=== PATIENT | male | born 2000 | race Caucasian/White ===

== ENCOUNTER 2023-06-18 17:02 | Inpatient (IN) ==
[2023-06-18 17:41] LABS: Basophils # (auto) 0.06 K/uL (0.00-0.20); Basophils % (auto) 0.6 %; Eosinophils % (auto) 0.9 %; Hematocrit (blood only) 46.9 % (42.0-52.0); Immature Granulocytes # (auto) 0.04 K/uL (0.01-0.20); Immature Granulocytes % (auto) 0.4 %; Lymphocytes % (auto) 23.9 %; Mean Corpuscular Hemoglobin 29.4 pg (25.0-34.0); Mean Corpuscular Hgb Conc 36.2 g/dL (32.0-36.0); Mean Platelet Volume 10.2 fL (9.4-12.4); Monocytes # (auto) 0.61 K/uL (0.11-0.59); Monocytes % (auto) 5.6 %; Neutrophils # (auto) 7.49 K/uL (1.40-6.50); Neutrophils % (auto) 68.6 %; Platelet Count 249 K/uL (130-400); RDW Coefficient of Variation 13.3 % (11.5-14.5); RDW Standard Deviation 38.5 fL (36.4-46.3); Red Blood Count 5.79 M/uL (4.70-6.10)
[2023-06-18 17:54] LABS: Alanine Aminotransferase 167 U/L (7-52); Albumin Globulin Ratio 1.7 (0.9-2); Albumin Level 5.1 gm/dl (3.4-5.0); Alkaline Phosphatase 78 U/L (34-104); Anion Gap 9 (3-11); Aspartate Aminotransferase 69 U/L (13-39); BUN Creatinine Ratio 19.1 (10-20); Bilirubin,Total 0.6 mg/dl (0.2-1.0); Blood Urea Nitrogen 17 mg/dl (6-23); Calcium 10.2 mg/dl (8.6-10.3); Carbon Dioxide 24 mmol/L (21-32); Chloride 106 mmol/L (98-107); Est GFR (African American) 140.7 ml/min; Est GFR (Non-African American) 121.4 ml/min; Glucose 106 mg/dl (70-99(Fasting)); Potassium 4.1 mmol/L (3.5-5.1); Sodium 139 mmol/L (136-145); Total Protein 8.1 gm/dl (6.0-8.3)
--- NOTE | 2023-06-18 18:35 | Emergency Department Note ---
Impression & Plan Myalgia, Weakness, Transaminitis ED Provider Note NAME: MELISSA JUSTIN AGE: 22 SEX: M : 2000 ARRIVES VIA: Walk-In INFORMANT: Patient, ED PROVIDER(S): Hector Zuluaga MD CHIEF COMPLAINT: Weakness, numbness MEDICAL DECISION MAKING: Patient presents due to concern for weakness. IV was established and blood work was obtained. The patient had a white count of 10 with a normal H&H and platelet count. Kidney functions unremarkable. Lyme's pending AST and ALT 69 167. Patient was ordered empiric IV doxycycline and azithromycin. Tickborne panel was added in addition to the Lyme which was noted to be equivocal. Patient CPK was 225 which is tracely elevated. Patient does have weakness of the lower extremities. Patient does not have any evidence of respiratory failure or compromise. Patient did complain of some numbness but the patient does have sensation in all 4 extremities. Equal and symmetric strength of the upper extremities. Patient does not have any bowel or bladder incontinence or retention. I did discuss w/ patient and family that further workup will continue as an inpatient and may involve lumbar puncture and/or MRIs. The family understood. I did speak with the on-call hospitalist service Dr. Child and the patient was admitted to the medicine service. Discussion w/ other healthcare providers: Dr. Child inpatient medicine 0 Prior /Outside records reviewed: Patient was reviewed for myalgia weakness and transaminitis shows seen by Dr. Patel. Patient reportedly had been complaining of some muscle soreness. Patient did have mild transaminitis with ALT 167. No evidence of rhabdo nothing to suggest GBS or cauda equina at that time and no back pain. Patient did have a head CT at that time that was negative. Differential diagnosis: Infection, dehydration, metabolic abnormality, hypo/hyperglycemia, electrolyte imbalance, anemia, UTI, pneumonia, thyroid dysfunction among others were considered. Diagnostics, as interpreted by me: ECG: None Cardiac monitoring: An order was placed for continuous cardiac monitoring. The monitor shows a rate of 95 with sinus rhythm. Patient was placed on pulse oximetry Medical decision rules: None Imaging studies: None HPI: Patient presents as a referral from [facility] due to concern for progressive myalgias paresthesias and lower extremity weakness. The patient had been seen at [facility] on 312 after symptom onset toward the end of April. Patient was noted to have elevated atypical lymphocytes and elevated AST and ALT unremarkable TSH ESR and CPK mild elevation in CRP with negative Lyme and LEIGHANN testing. Patient did present to the emergency department here on the did have a headache prior and did have some myalgias involving the legs and arms but no weakness or numbness at that time. The patient has noticed progressively worsening to where he describes this as numbness can still feel but feels "numb." Patient has had weakness in his lower extremities. Patient denies any recent vaccinations or upper respiratory symptoms. Patient is unsure as to whether or not he had any known tick bites but did go fishing sometime in April. Patient did have EBV serology testing that was positive positive CMV and was empirically started on doxycycline on June 11 which she has been taking twice daily. Patient had negative Lyme ehrlichiosis Anaplasma but did have equivocal babesiosis testing. Patient denies any bowel bladder incontinence or retention denies any back pain. No trauma. Patient denies any current head or neck pain but does have diffuse bodyaches and myalgias. PAST MEDICAL HISTORY: See Below PAST SURGICAL HISTORY: See Below SOCIAL HISTORY: See Below HOME MEDICATIONS: See Below ALLERGIES: See Below VITALS: See Below PHYSICAL EXAMINATION: GENERAL: NAD, non-toxic. Wearing glasses EYE EXAM: Normal conjunctiva. PERRL, no anisocoria and EOM's grossly intact w/o pain. OROPHARYNX: Moist mucus membranes, grossly normal dentition. NECK: Trachea midline, no stridor. Supple, no nuchal rigidity, no adenopathy, non-tender. No signs of meningismus. FROM of the neck with good chin to chest and neck extension. LUNGS: Clear to auscultation. Normal chest wall mechanics. HEART: NSR, no MRG. ABDOMEN: Abdomen soft, non-tender, no masses, no rebound or guarding. BACK: No CVA TTP. SKIN: No rashes and no bruising. UPPER EXTREMITIES: Upper extremities are grossly normal. LOWER EXTREMITIES: Grossly normal, no edema. NEURO EXAM: A&O x3, cranial nerves II-XII grossly intact, normal speech, moves all 4 extremities but 5 out of 5 strength in the bilateral upper 2 out of 5 in the bilateral lower, decree sensation throughout but still sensate. No clonus. Past Med/Surg History Medical History (Updated 06/18/23 @ 23:32 by Hector Zuluaga MD) TMJ (temporomandibular joint syndrome) Surgical History History of hernia surgery 2009 Family History Mother Hypertension Environmental allergies Grandmother (Maternal) Hypertension Breast cancer Brother History of adverse reaction to anesthesia Father History of adverse reaction to anesthesia Other No family history of bleeding disorder Social History Smoking Status: Never smoker Do You Dip or Chew Tobacco: No; Hx Alcohol Use: Yes Alcohol type: beer Alcohol Intake Frequency: 2-4 x/Month Hx Substance Use: No Preferred Language: Nigerian Communication Ability: Effective Oral Surgery Technician Required: No Beliefs That Will Affect Care: None marital status: Single Current Living Situation: Other Current Living Situation Comment: Student, lives with a roommate current occupational status: student Other Information That Helps Us Care for You: No Feels Safe at Home: Yes Safety Concerns: Feels Safe At This Time Assistive Devices: Glasses Allergies Allergies Allergy/AdvReac Type Severity Reaction Status Date / Time seasonal Allergy Unknown Unknown Uncoded 06/18/23 18:42 Home Meds Home Medications Medication Instructions Recorded Confirmed ascorbic acid (vitamin C) 500 mg 500 mg PO DAILY 06/18/23 06/18/23 tablet (Vitamin C) cholecalciferol (vitamin D3) 50 50 mcg PO DAILY 06/18/23 06/18/23 mcg (2,000 unit) tablet (Vitamin D3) doxycycline hyclate 100 mg tablet 100 mg PO BID 06/18/23 06/18/23 levocetirizine 5 mg tablet (Xyzal) 5 mg PO DAILY PRN allergies 06/18/23 06/18/23 zinc 50 mg capsule 50 mg PO DAILY 06/18/23 06/18/23 Results & Data (ED) Vital Signs Vital Signs - 24 hr 06/18/23 17:10 06/18/23 18:53 06/18/23 20:26 Temperature 36.4 C L Temperature Source Temporal Artery Scan Pulse Rate 114 H Pulse Rate [Finger] 113 H 89 Respiratory Rate 20 18 Respiratory Effort / Characteristics Non-Labored Spontaneous Respiratory Depth Normal Respiratory Pattern Regular Blood Pressure 146/82 H Blood Pressure [Left Arm] 126/90 108/80 Blood Pressure Mean 103 Blood Pressure Mean [Left Arm] 102 89 Blood Pressure Position [Left Arm] Semi-fowlers Pulse Oximetry 100 100 100 Oxygen Delivery Method Room Air Room Air Room Air Sepsis Recent Fever Within 48 Hours No Sepsis New/Unexplained Change in Mental Status N/A Sepsis Action Taken by Nursing No Action Required Home Medications Current Medication List: was personally reviewed by me Laboratory Data Attestation: I reviewed the patient's lab results. 06/18/23 17:25 06/18/23 17:25 Lab Results 06/18/23 06/18/23 06/18/23 Range/Units 17:14 17:25 19:25 WBC 10.90 H (4.8-10.8) K/ul RBC 5.79 (4.70-6.10) M/uL Hgb 17.0 (14.0-18.0) g/dl Hct 46.9 (42.0-52.0) % MCV 81.0 (80.0-100.0) fL MCH 29.4 (25.0-34.0) pg MCHC 36.2 H (32.0-36.0) g/dL RDW Std Deviation 38.5 (36.4-46.3) fL RDW Coeff of Yennifer 13.3 (11.5-14.5) % Plt Count 249 (130-400) K/uL MPV 10.2 (9.4-12.4) fL Immature Gran % (Auto) 0.4 % Neut % (Auto) 68.6 % Lymph % (Auto) 23.9 % Rooks % (Auto) 5.6 % Eos % (Auto) 0.9 % Baso % (Auto) 0.6 % Neut # (Auto) 7.49 H (1.40-6.50) K/uL Lymph # (Auto) 2.60 (1.20-3.40) K/uL Rooks # (Auto) 0.61 H (0.11-0.59) K/uL Eos # (Auto) 0.10 (0.00-0.50) K/uL Baso # (Auto) 0.06 (0.00-0.20) K/uL Immature Gran # (Auto) 0.04 (0.01-0.20) K/uL Sodium 139 (136-145) mmol/L Potassium 4.1 (3.5-5.1) mmol/L Chloride 106 (98-107) mmol/L Carbon Dioxide 24 (21-32) mmol/L Anion Gap 9 (3-11) BUN 17 (6-23) mg/dl Creatinine 0.89 (0.6-1.4) mg/dl Est Cr Clr Drug Dosing Not Reportable Est GFR ( Amer) 140.7 ml/min Est GFR (Non-Af Amer) 121.4 ml/min BUN/Creatinine Ratio 19.1 (10-20) Glucose 106 H (70-99(Fasting)) mg/dl Calcium 10.2 (8.6-10.3) mg/dl Total Bilirubin 0.6 (0.2-1.0) mg/dl AST 69 H (13-39) U/L ALT 167 H (7-52) U/L Alkaline Phosphatase 78 (34-104) U/L Total Creatine Kinase 225 H (30-223) U/L Total Protein 8.1 (6.0-8.3) gm/dl Albumin 5.1 H (3.4-5.0) gm/dl Globulin 3.0 (2.5-4.0) gm/dl Albumin/Globulin Ratio 1.7 (0.9-2) Procalcitonin 0.04 (0-0.5) ng/ml Adenovirus (PCR) Not Detected (NotDetected) Anaplasma Smear Babesia Smear B. pertussis DNA (PCR) Not Detected (NotDetected) B.parapertussis DNA PCR Not Detected (NotDetected) Lyme Disease Screen Equivocal H (Negative) Lyme Disease IgG Ab Negative (Negative) Lyme Disease IgM Ab Positive H (Negative) C. pneumoniae DNA (PCR) Not Detected (NotDetected) Coronavirus OC43 (PCR) Not Detected (NotDetected) Coronavirus HKU1 (PCR) Not Detected (NotDetected) Coronavirus 229E (PCR) Not Detected (NotDetected) SARS-CoV-2 (PCR) Not Detected (NotDetected) Coronavirus NL63 (PCR) Not Detected (NotDetected) Monoscreen Positive A (Negative) Human Metapneumovir PCR Not Detected (NotDetected) Influenza Type A (PCR) Not Detected (NotDetected) Influenza Type B (PCR) Not Detected (NotDetected) M. pneumoniae (PCR) Not Detected (NotDetected) Parainfluenza 1 (PCR) Not Detected (NotDetected) Parainfluenza 2 (PCR) Not Detected (NotDetected) Parainfluenza 3 (PCR) Not Detected (NotDetected) Parainfluenza 4 (PCR) Not Detected (NotDetected) RSV (PCR) Not Detected (NotDetected) Entero/Rhino (PCR) Not Detected (NotDetected) 06/18/23 Range/Units 20:33 WBC (4.8-10.8) K/ul RBC (4.70-6.10) M/uL Hgb (14.0-18.0) g/dl Hct (42.0-52.0) % MCV (80.0-100.0) fL MCH (25.0-34.0) pg MCHC (32.0-36.0) g/dL RDW Std Deviation (36.4-46.3) fL RDW Coeff of Yennifer (11.5-14.5) % Plt Count (130-400) K/uL MPV (9.4-12.4) fL Immature Gran % (Auto) % Neut % (Auto) % Lymph % (Auto) % Rooks % (Auto) % Eos % (Auto) % Baso % (Auto) % Neut # (Auto) (1.40-6.50) K/uL Lymph # (Auto) (1.20-3.40) K/uL Rooks # (Auto) (0.11-0.59) K/uL Eos # (Auto) (0.00-0.50) K/uL Baso # (Auto) (0.00-0.20) K/uL Immature Gran # (Auto) (0.01-0.20) K/uL Sodium (136-145) mmol/L Potassium (3.5-5.1) mmol/L Chloride (98-107) mmol/L Carbon Dioxide (21-32) mmol/L Anion Gap (3-11) BUN (6-23) mg/dl Creatinine (0.6-1.4) mg/dl Est Cr Clr Drug Dosing Est GFR ( Amer) ml/min Est GFR (Non-Af Amer) ml/min BUN/Creatinine Ratio (10-20) Glucose (70-99(Fasting)) mg/dl Calcium (8.6-10.3) mg/dl Total Bilirubin (0.2-1.0) mg/dl AST (13-39) U/L ALT (7-52) U/L Alkaline Phosphatase (34-104) U/L Total Creatine Kinase (30-223) U/L Total Protein (6.0-8.3) gm/dl Albumin (3.4-5.0) gm/dl Globulin (2.5-4.0) gm/dl Albumin/Globulin Ratio (0.9-2) Procalcitonin (0-0.5) ng/ml Adenovirus (PCR) (NotDetected) Anaplasma Smear See Comment Babesia Smear See Comment B. pertussis DNA (PCR) (NotDetected) B.parapertussis DNA PCR (NotDetected) Lyme Disease Screen (Negative) Lyme Disease IgG Ab (Negative) Lyme Disease IgM Ab (Negative) C. pneumoniae DNA (PCR) (NotDetected) Coronavirus OC43 (PCR) (NotDetected) Coronavirus HKU1 (PCR) (NotDetected) Coronavirus 229E (PCR) (NotDetected) SARS-CoV-2 (PCR) (NotDetected) Coronavirus NL63 (PCR) (NotDetected) Monoscreen (Negative) Human Metapneumovir PCR (NotDetected) Influenza Type A (PCR) (NotDetected) Influenza Type B (PCR) (NotDetected) M. pneumoniae (PCR) (NotDetected) Parainfluenza 1 (PCR) (NotDetected) Parainfluenza 2 (PCR) (NotDetected) Parainfluenza 3 (PCR) (NotDetected) Parainfluenza 4 (PCR) (NotDetected) RSV (PCR) (NotDetected) Entero/Rhino (PCR) (NotDetected) Administered Medications Discontinued Medications Azithromycin 500 mg/ Dextrose 255 mls @ 127.5 mls/hr IV NOW STA Stop: 06/18/23 21:11 Last Admin: 06/18/23 20:36 Dose: 127.5 mls/hr Documented By: RACHNA Doxycycline Hyclate 100 mg/ (Dextrose) 100 mls @ 50 mls/hr IV NOW STA Stop: 06/18/23 21:11 Last Admin: 06/18/23 19:22 Dose: Not Given Documented By: RACHNA Sodium Chloride (Nss) 1,000 mls @ 999 mls/hr IV .Q1H1M ONE Stop: 06/18/23 20:13 Last Infusion: 06/18/23 21:24 Dose: Infused Documented By: Admin: 06/18/23 20:23 Dose: 999 mls/hr Documented By: RACHNA Discharge Plan Visit Data Chief Complaint: Leg Weakness, Bilateral Stated Complaint: WEAKNESS OF LIMBS, UNABLE TO WALK ED Provider: Hector Zuluaga Discharge Problem: Myalgia, Weakness, Transaminitis Patient Disposition: Admitted As Inpatient Discharge Instructions Interventions: ED Discharge Assessment Last Done: 06/18/23 21:44
[2023-06-18 18:42] LABS: Lyme Screen Rflx Confirmation Equivocal (Negative)
[2023-06-18 19:07] LABS: Creatine Kinase 225 U/L (30-223)
[2023-06-18] MEDS: DOXYCYCLINE HYCLATE 100 MG in DEXTROSE 5% MINI-B 100 ML IV STA (19:22)
[2023-06-18] MEDS: SODIUM CHLORIDE 0.9% 1,000 ML IV ONE (20:23)
[2023-06-18] MEDS: AZITHROMYCIN 500 MG in DEXTROSE 5% 250 ML IV STA (20:36)
[2023-06-18 20:42] LABS: Adenovirus PCR Not Detected (NotDetected); Bordetella parapertussis PCR Not Detected (NotDetected); Bordetella pertussis PCR Not Detected (NotDetected); Chlamydia pneumoniae PCR Not Detected (NotDetected); Coronavirus 229E PCR Not Detected (NotDetected); Coronavirus CoV-2 (COVID19)PCR Not Detected (NotDetected); Coronavirus HKU1 PCR Not Detected (NotDetected); Coronavirus NL63 PCR Not Detected (NotDetected); Coronavirus OC43PCR Not Detected (NotDetected); Human Metapneumovirus PCR Not Detected (NotDetected); Influenza A PCR Not Detected (NotDetected); Influenza B PCR Not Detected (NotDetected); Mycoplasma pneumoniae PCR Not Detected (NotDetected); Parainfluenza Virus 1 PCR Not Detected (NotDetected); Parainfluenza Virus 2 PCR Not Detected (NotDetected); Parainfluenza Virus 3 PCR Not Detected (NotDetected); Parainfluenza Virus 4 PCR Not Detected (NotDetected); Respiratory Syncytial VirusPCR Not Detected (NotDetected); Rhinovirus/Enterovirus PCR Not Detected (NotDetected)
--- NOTE | 2023-06-18 22:24 | History & Physical Report ---
Date of Service June 18, 2023 Assessment & Plan (1) Transaminitis: (2) Weakness: (3) Myalgia: (4) TMJ (temporomandibular joint syndrome): Plan 22 year old male with h/o TMJ syndrome presenting with progressively worsening myalgias, paresthesias, and LE weakness. Primary differentials include Lyme disease vs GBS/AIDP secondary to viral infection, though many other etiologies remain plausible. LE weakness/ Paresthesias/ Myalgias: +CMV IgM and IgG, +EBV VCA IgM/IgG and EBNA IgG +Lyme IgM, reflex Western blot pending Blood cultures pending MRI brain/C-spine/L-spine w/wo contrast ordered Neurology consulted, appreciate recs Will need LP, CSF studies in AM - if evidence of albuminocytologic dissociation, will need IVIG Continue doxycycline for empiric Lyme coverage, start IV Ceftriaxone 2g Q12 hours Start dexamethasone 10mg Q6H Start Acyclovir 850mg Q8H Start Vancomycin - pharmacy to dose Dispo: admit to PCU/tele VTE ppx: low-risk, deferred FEN/GI: regular diet Full Code History of Present Illness Primary Care Provider: [facility] 22 year old male with h/o TMJ syndrome presenting with progressively worsening myalgias, paresthesias, and LE weakness. Sx initially started in late April with headache and paresthesia in hands and feet - then began having myalgias in all four extremities. Patient presented today as he had sudden worsening in LE weakness, such that he could not walk. Prior to this, patient was seen in ED on 06/10, negative CT head, labs largely unremarkable apart from mild transaminitis. Since discharge from ED, patient had follow up outpatient studies through [facility], significant for ongoing mild transaminitis, +CMV IgM and IgG, +EBV VCA IgM/IgG and EBNA IgG (suggestive of recent infection). Lyme, ehrlichiosis, anaplasmosis testing negative, babesiosis testing equivocal. LEIGHANN, ESR negative, CRP slightly elevated. Patient was started on Doxycycline on 06/11, still taking. Patient d enies any sick symptoms in the recent past, no fevers, also denies recent vaccinations. Patient notes he went fishing one time in mid-April, denies known tick bites, denies subsequent rashes. Denies neck pain, denies bowel/bladder incontinence. Denies family history of neurological conditions. ED Course: WBC 10.9, AST 69, ALT 167, total CK 225, Lyme screen equivocal with positive IgM, +Monoscreen Allergies Allergy/AdvReac Type Severity Reaction Status Date / Time grass pollen Allergy Unknown Unknown Verified 06/19/23 01:08 tree and shrub pollen Allergy Unknown Unknown Verified 06/19/23 01:08 weed pollen Allergy Unknown Unknown Verified 06/19/23 01:08 Home Medications Medication Instructions Recorded Confirmed Type ascorbic acid (vitamin C) 500 mg 500 mg PO DAILY 06/18/23 06/18/23 History tablet (Vitamin C) cholecalciferol (vitamin D3) 50 50 mcg PO DAILY 06/18/23 06/18/23 History mcg (2,000 unit) tablet (Vitamin D3) doxycycline hyclate 100 mg tablet 100 mg PO BID 06/18/23 06/18/23 History levocetirizine 5 mg tablet (Xyzal) 5 mg PO DAILY PRN allergies 06/18/23 06/18/23 History zinc 50 mg capsule 50 mg PO DAILY 06/18/23 06/18/23 History Past Med/Surg History Medical History (Updated 06/18/23 @ 23:32 by Hector Zuluaga MD) TMJ (temporomandibular joint syndrome) Surgical History History of hernia surgery 2009 Family History Mother Hypertension Environmental allergies Grandmother (Maternal) Hypertension Breast cancer Brother History of adverse reaction to anesthesia Father History of adverse reaction to anesthesia Other No family history of bleeding disorder Social History Smoking Status: Never smoker Do You Dip or Chew Tobacco: No; Hx Alcohol Use: Yes Alcohol type: beer Alcohol Intake Frequency: 2-4 x/Month Hx Substance Use: No Preferred Language: Uzbek Communication Ability: Effective Tobacco Educator Required: No Beliefs That Will Affect Care: None marital status: Single Current Living Situation: Other Current Living Situation Comment: Student, lives with a roommate current occupational status: student Other Information That Helps Us Care for You: No Feels Safe at Home: Yes Safety Concerns: Feels Safe At This Time Assistive Devices: Glasses Review of Systems Review of Systems: as per HPI Physical Exam Physical Exam: General: Alert and oriented. No acute distress Cardiac: Regular rate and rhythm, no murmurs appreciated Respiratory: Lungs clear to auscultation bilaterally, No increased work of breathing Abdominal: Non-tender, non-distended. Bowel sounds present. Neuro: AOx3, CNII-XII grossly intact apart from minor smile asymmetry with right corner of mouth higher than left, sensation grossly preserved, 5/5 UE strength, 2+/5 strength on hip flexion, plantar and dorsiflexion. 1/4 patellar and achilles reflexes bilaterally. Results & Data Results & Data Vital Signs (Past 12 Hours) Vital Signs Temp Pulse Pulse Resp BP BP Pulse Ox 06/18/23 20:26 89 18 108/80 100 06/18/23 18:53 113 H 126/90 100 06/18/23 17:10 36.4 C L 114 H 20 146/82 H 100 O2 Del Method 06/18/23 20:26 Room Air 06/18/23 18:53 Room Air 06/18/23 17:10 Room Air Supervising Physician Co-Signing Physician Notes Attending addendum: I have physically seen this patient, have supervised the medical residents activities, and agree with the H&P unless as otherwise noted. Assessment and Plan: Bilateral lower extremity weakness/paresthesias/myalgias- CMV IgM and IgG positive from [facility] EBV VCA IgM and IgG positive and EBNA IgG from [facility] Lyme IgM positive and IgG negative, from ED results this evening Anaplasmosis and babesiosis peripheral smear is negative, with antibodies pending Transaminitis, persistent, with AST 69 and ALT 167 BioFire test negative except for positive Monospot Patient has been on doxycycline 100 mg p.o. twice daily since 06/11, with progression of symptoms Initial symptoms were that of myalgias and arthralgias, but over the past 24 hours developed significant lower extremity weakness bilaterally Place on dexamethasone 10 mg IV now and then 6 mg IV every morning Ceftriaxone 2 g IV every 12 hours Change doxycycline to 100 mg IV every 12 hours Vancomycin IV per pharmacokinetic monitoring Acyclovir 850 mg IV every 8 hours IVIG per pharmacokinetic monitoring, daily for 5 days, with Benadryl premedication Guillain-Verdugo like symptoms- MRI brain with and without contrast negative MRI cervical spine with and without contrast negative MRI lumbar spine unable to be performed, as patient fatigued during the process, and will be done in the a.m. IR lumbar puncture to be performed in a.m. IVIG as noted above Neurology consulted Of note, patient's symptoms had essentially completely resolved by about 4:00 AM, having been reassessed periodically during the evening with gradual improvement in symptoms Resident Activity Tracking Resident Involvement: Resident Care Provided Care Provided: Adult [facility] Medicine
[2023-06-18] MEDS ORDERED: POLYETHYLENE (MIRALAX) 17 GM PACK PO PRN (22:53)
[2023-06-18] MEDS ORDERED: CETIRIZINE HCL 10 MG TABLET PO PRN (23:09)
[2023-06-19] MEDS ORDERED: VANCOMYCIN CONSULT ACTIVE PRN (00:06)
[2023-06-19] MEDS: GADOBUTROL 30ML VIAL IV ONE (00:48)
[2023-06-19] MEDS: DOXYCYCLINE HYCLATE 100 MG CAP PO SCH (01:18)
[2023-06-19] MEDS: dexAMETHasone 10 MG in SYRINGE 0 ML IV SCH (01:18)
[2023-06-19] MEDS: cefTRIAXone SODIUM 2,000 MG in DEXTROSE 5 % MINI-B 50 ML IV SCH ×2 (01:19→12:29)
[2023-06-19] MEDS: VANCOMYCIN HCL 1,750 MG in SODIUM CHLORIDE 0.9% 500 ML IV ONE (01:56)
--- NOTE | 2023-06-19 02:32 | Magnetic Resonance Report ---
Exam(s): MRI HEAD W/WO Contrast IV Amt: 8cc gadavist EXAM: MR Head Without and With Intravenous Contrast CLINICAL HISTORY: Reason for exam: weakness/paresthesias. TECHNIQUE: Magnetic resonance images of the head/brain without and with intravenous contrast in multiple planes. CONTRAST: Patient received 8cc gadavist of IV contrast COMPARISON: No relevant comparison made to prior head CT from June 11, 2023. FINDINGS: Brain: Unremarkable. No mass. No hemorrhage. No acute infarct. The flow voids at the base of the brain are intact. Normal enhancement of the brain parenchyma. The dural venous sinuses are patent. Ventricles: Unremarkable. No ventriculomegaly. Bones/joints: Unremarkable. No acute fracture. Sinuses: Unremarkable as visualized. No acute sinusitis. Mastoid air cells: Unremarkable as visualized. No mastoid effusion. Orbits: Unremarkable as visualized. IMPRESSION: Negative MRI of the brain. Electronically signed by: Margaux Earl MD 06/19/23 02:31 AM
--- NOTE | 2023-06-19 02:35 | Magnetic Resonance Report ---
Exam(s): MRI C SPINE EXAM: MR Cervical Spine Without Intravenous Contrast CLINICAL HISTORY: Reason for exam: weakness/paresthesias. TECHNIQUE: Magnetic resonance images of the cervical spine without intravenous contrast in multiple planes. COMPARISON: No relevant prior studies available. FINDINGS: Vertebrae: There are 7 cervical type vertebral bodies with a mild generalized curve to the left and shallow cervical lordosis. There is normal vertebral body height and alignment. The bone marrow signal is normal. No acute fracture. Spinal cord: The cord is normal size, shape and signal characteristics. The craniocervical junction is normal without evidence of Chiari malformation. Soft tissues: The cervical flow voids are intact. DISCS/SPINAL CANAL/NEURAL FORAMINA: C2-C3: Unremarkable. No significant disc disease. No stenosis. C3-C4: Unremarkable. No significant disc disease. No stenosis. C4-C5: Unremarkable. No significant disc disease. No stenosis. C5-C6: Unremarkable. No significant disc disease. No stenosis. C6-C7: Unremarkable. No significant disc disease. No stenosis. C7-T1: Unremarkable. No significant disc disease. No stenosis. IMPRESSION: Negative MRI of the cervical spine. Electronically signed by: Margaux Earl MD 06/19/23 02:34 AM
[2023-06-19] MEDS: diphenhydrAMINE Capsule 25 MG CAP PO SCH (03:31)
[2023-06-19] MEDS: Octagam 10% IVIG 5 gram bottle IV SCH (04:17)
[2023-06-19] MEDS: ACYCLOVIR SOD 850 MG in DEXTROSE 5% 250 ML IV SCH (04:47)
[2023-06-19] MEDS: Octagam 10% IVIG 10 gram bottle IV SCH (05:15)
--- NOTE | 2023-06-19 05:15 | Billing Data ---
Date of Service June 19, 2023 Coding Level of Care Code 00550 INT INP/OBS CARE
[2023-06-19 06:29] LABS: Hematocrit (blood only) 40.5 % (42.0-52.0); Hemoglobin 14.6 g/dl (14.0-18.0); Mean Corpuscular Hemoglobin 29.6 pg (25.0-34.0); Mean Corpuscular Volume 82.2 fL (80.0-100.0); Mean Platelet Volume 10.3 fL (9.4-12.4); Platelet Count 203 K/uL (130-400); RDW Coefficient of Variation 13.3 % (11.5-14.5); RDW Standard Deviation 39.4 fL (36.4-46.3); Red Blood Count 4.93 M/uL (4.70-6.10); White Blood Count 8.56 K/ul (4.8-10.8)
[2023-06-19 06:57] LABS: Albumin Globulin Ratio 1.5 (0.9-2); Albumin Level 4.3 gm/dl (3.4-5.0); Bilirubin,Total 0.6 mg/dl (0.2-1.0); Calcium 9.3 mg/dl (8.6-10.3); Creatinine Clr Calc Pharmacy 135.3 ml/min; Est GFR (African American) 132.9 ml/min; Est GFR (Non-African American) 114.6 ml/min; Globulin 2.9 gm/dl (2.5-4.0); Potassium 3.9 mmol/L (3.5-5.1); Total Protein 7.2 gm/dl (6.0-8.3)
[2023-06-19] MEDS: Octagam 10% IVIG 20 gram bottle IV SCH (07:12)
[2023-06-19] MEDS: DOXYCYCLINE HYCLATE 100 MG in DEXTROSE 5% MINI-B 100 ML IV SCH (08:34)
--- NOTE | 2023-06-19 09:32 | Pharmacy Report ---
Pharmacy PK ABX Note - Date of Service June 19, 2023 - Assessment and Plan Assessment 22 year old M receiving vancomycin/ceftriaxone/acyclovir for treatment of possible UTILITY TECH infection and doxycycline to cover for Lyme's disease. Pertinent microbiologic data includes: blood cultures pending, positive monoscreen, equivocal lyme disease screen with positive Lyme IgM and negative Lyme IgG antibodies. Lumbar puncture pending. Day #1 of antimicrobial therapy. Plan Vancomycin * Loading dose: 1750 mg IV x 1 * Maintenance dose: 1250 mg IV every 8 hours * Regimen is predicted to achieve target AUC/SUZETTE of 400-600 mg/L.hr * Trough level ordered for: 06/20/23 @ 0930 Pharmacy will continue to follow and will adjust dose/frequency as necessary. Thank you. Pharmacy has transitioned to AUC monitoring for vancomycin. AUC/SUZETTE is the preferred PK/PD target and is associated with decreased risk of nephrotoxicity compared to traditional trough targets.
[2023-06-19] MEDS: VANCOMYCIN HCL 1,250 MG in SODIUM CHLORIDE 0.9% 250 ML IV SCH (10:24)
--- NOTE | 2023-06-19 10:40 | Neurology Consultation ---
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 He has an associated mild left facial palsy which appears to affect both the upper and lower aspects of facial strength although upper facial weakness is more subtle. He has absent Achilles tendon reflexes and diminished deep tendon reflexes at the patellar tendons and upper limbs as well. His sensation is generally intact. His strength has improved modestly after starting IVIG overnight. He is currently able to stand up on his own without assistance. He continues to exhibit a mild to moderate degree of lower extremity weakness, however. No foot drop. A lumbar puncture is generally required to formally establish a diagnosis of Guillain-Verdugo syndrome. Would need to indicate albuminocytologic dissociation. LP to be completed today in radiology. Would recommend adding a meningoencephalitis PCR panel. This patient does have acute antibody elevations for both CMV and EBV. CMV in particular has been associated with Guillain-Verdugo syndrome. He also has a positive Lyme IgM, Western blot pending. Acute Lyme disease is also been associated with Guillain-Verdugo syndrome. Would recommend continued treatment with ceftriaxone given the possibility of Lyme disease and associated GBS. Would continue with IVIG, 0.4 g/kg/day for 5 days. Corticosteroids are typically not recommended for treatment of Guillain-Verdugo syndrome. Patient's presentation is not suggestive of HSV encephalitis. Patient will need further medical evaluation for possible acute CMV and EBV infection and associated hematologic and other organ-specific manifestations. He does have transaminitis. There is some risk for venous thrombosis and DIC as well. Could consider specific antiviral treatment for CMV although I am uncertain if this would be needed in an otherwise immunocompetent host. It may be necessary to consult infectious disease in this case given that he has both positive for EBV and CMV, and at this point also appears to have a positive Lyme IgM. Please call with any questions. 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 He had initially presented to the emergency department on June 10 with a complaint of myalgia. He was not weak on examination at that time and had an unremarkable evaluation including labs, CT of the head, CK. Guillain-Verdugo syndrome was considered in the differential at that time although he had intact strength and deep tendon reflexes. He was discharged in stable condition but instructed to return to the emergency department in the event of significant change. He presented again to the emergency department yesterday with progression in his symptoms, inability to go up and down steps, difficulty standing. He recalls having headache and paresthesias of the lower and upper limbs at symptom onset. He does not recall any antecedent upper respiratory or gastrointestinal illness. No antecedent vaccinations. He denies any history of recent tick bite, no known history of mononucleosis or Stanton-Verdugo virus infection. No arthralgia, no bull's-eye rash. He had been started on doxycycline on June 11. He had notable weakness of the lower extremities at the time of this hospitalization as well as reduced lower extremity deep tendon reflexes. He had an equivocal positive Lyme screen with a positive Lyme IgM. He had a positive CMV IgM and IgG antibody on June 14. He also has a positive EBV IgM and IgG antibody, negative HIV antibody, normal vitamin B12. I discussed his case with the admitting physician last night and had considered Guillain-Verdugo syndrome as a probable diagnosis. Additional testing was recommended including MRI of the brain and spinal cord as well as lumbar puncture and consideration of treatment with IVIG in addition to broad-spectrum antimicrobial therapy initially. Both the brain and cervical spine MRI were completed overnight, studies done with and without IV contrast. No abnormalities observed. I independently reviewed these images. The patient is currently being treated with ceftriaxone, acyclovir, vancomycin, and doxycycline. IVIG was started as well. The lumbar puncture has not been completed, however, to be done this morning in radiology. The patient does report considerable improvement in his weakness this morning although he continues to have weakness of the legs and some difficulty standing. He also has a subtle left facial droop, primarily left lower face although there is subtle weakness of left brow furrow and eyelid closure on the left as well. He denies headache, neck stiffness, or spinal pain. No incontinence. No cognitive or memory symptoms. No confusion. Allergies Allergy/AdvReac Type Severity Reaction Status Date / Time grass pollen Allergy Unknown Unknown Verified 06/19/23 01:08 tree and shrub pollen Allergy Unknown Unknown Verified 06/19/23 01:08 weed pollen Allergy Unknown Unknown Verified 06/19/23 01:08 Home Medications Medication Instructions Recorded Confirmed Type ascorbic acid (vitamin C) 500 mg 500 mg PO DAILY 06/18/23 06/18/23 History tablet (Vitamin C) cholecalciferol (vitamin D3) 50 50 mcg PO DAILY 06/18/23 06/18/23 History mcg (2,000 unit) tablet (Vitamin D3) doxycycline hyclate 100 mg tablet 100 mg PO BID 06/18/23 06/18/23 History levocetirizine 5 mg tablet (Xyzal) 5 mg PO DAILY PRN allergies 06/18/23 06/18/23 History zinc 50 mg capsule 50 mg PO DAILY 06/18/23 06/18/23 History Patient History Medical History (Updated 06/19/23 @ 10:24 by Kendell Telles MD) TMJ (temporomandibular joint syndrome) Surgical History History of hernia surgery 2009 Family History Mother Hypertension Environmental allergies Grandmother (Maternal) Hypertension Breast cancer Brother History of adverse reaction to anesthesia Father History of adverse reaction to anesthesia Other No family history of bleeding disorder Social History Smoking Status: Never smoker Do You Dip or Chew Tobacco: No; Hx Alcohol Use: Yes Alcohol type: beer Alcohol Intake Frequency: 2-4 x/Month Hx Substance Use: No Preferred Language: Argentine Communication Ability: Effective Advertising Sales Representative Required: No Beliefs That Will Affect Care: None marital status: Single Current Living Situation: Other Current Living Situation Comment: Student, lives with a roommate current occupational status: student Other Information That Helps Us Care for You: No Feels Safe at Home: Yes Safety Concerns: Feels Safe At This Time Assistive Devices: Glasses Review of Systems Constitutional: no fever and no chills Eyes: no blind spots and no diplopia Ear, Nose, Mouth, Throat: no hearing loss Respiratory: no cough and no dyspnea Cardiovascular: no chest pain and no palpitations Gastrointestinal: no nausea and no vomiting Genitourinary: no dysuria or no urinary incontinence Musculoskeletal: as per Subjective / HPI, + myalgia and + muscle weakness; no back pain, no neck pain, no joint pain and no muscle atrophy Integumentary: no rash and no lesions Neurologic: as per Subjective / HPI, + gait abnormality, + unsteadiness, + localized weakness and + paresthesia; no tremor(s), no abnormal movements, no dizziness, no abnormal speech, no confusion and no memory loss Psychiatric: no depression and no anxiety Hematologic / Lymphatic: no lymphadenopathy Exam (Neuro) Constitutional: well developed and well nourished; no acute distress Eyes: normal visual yao by confrontation, PERRL and EOM intact bilaterally; no nystagmus Neurologic: Oriented to:: Person, Place and Time Memory: Short Term Intact and Remote Intact Attention: Span Intact and Concentration Intact Speech Fluency: negative Dysarthria or Dysfluency Speech Aphasia: negative Aphasia Fund of Knowledge: Current Events, Past History and Vocabulary Cranial Nerves: Normal II, III, IV, , V, VIII, IX, X, XI and XII; Abnorm VII (Left facial droop noted, primarily lower face although there is subtle weakness of brow furrow and eyelid closure on the left) Motor Strength: negative Normal Lower Extremities or Normal Upper Extremities Motor Tone: Normal Lower Extremities and Normal Upper Extremities Muscle Bulk/Involuntary Movements: No Involuntary Movements; negative Muscle Atrophy Sensation: Light Touch Intact, Pain/Temperature Intact, Vibration Intact and Proprioception Intact Coordination: Limited Balance and Heel-Leija Abnormal; negative Dysdiadochokinesia or Finger-Nose Abnormal Deep Tendon Reflexes: Rt Triceps: 1+, Lt Triceps: 1+, Rt Biceps: 1+, Lt Biceps: 1+, Rt Brachioradialis: 1+, Lt Brachioradialis: 1+, Rt Patellar: 0, Lt Patellar: 1+, Rt Ankle: 0 and Lt Ankle: 0 Special Tests: negative Babinski Present Gait: Ataxic Results & Data Vital Signs (Past 12 Hours) Vital Signs Temp Pulse Pulse Resp BP Pulse Ox O2 Del Method 06/19/23 08:00 99 H 06/19/23 07:18 37.0 C 83 19 126/72 98 Room Air 06/19/23 02:45 36.6 C 80 18 126/79 99 Room Air 06/19/23 00:16 101 H 06/18/23 23:10 36.6 C 99 H 18 138/82 99 Room Air 06/18/23 22:35 36.7 C 92 H 18 145/80 H 100 Room Air Laboratory Results WBC 8.56, hemoglobin 14.6, hematocrit 40.5, platelet count 203, sodium 137, potassium 3.9, BUN 16, creatinine 0.94, glucose 179, calcium 9.3, AST 54, ALT 133, total CK2 25, Lyme screen equivocal, positive Lyme IgM antibody, positive monoscreen. Recent outpatient labs from June 14 reviewed. CMV IgM and IgG antibody titers elevated, IgG 3.7, IgM 207.00. EBV antibodies elevated as well, EBV IgM greater than 160, IgG 236, EBV nuclear antigen IgG greater than 600. HIV antibodies negative. Vitamin B12 567, folate 11.0, there is a mild elevation in babesia microti Ab antibody IgM, 1: 120. Diagnostic Findings Brain and cervical spine MRI with and without contrast are both unremarkable, no parenchymal abnormality, no evidence of subacute or acute stroke, no abnormal postcontrast enhancement, no myelopathy. I independently reviewed these images. Coding Level of Care Code 93045 INT INP/OBS CARE 3/75MIN Diagnoses GBS (Guillain Horatio syndrome) G61.0 Time Spent (min) 90 Comment Total time includes patient contact, chart review, counseling, note preparation
--- NOTE | 2023-06-19 11:13 | Hospitalist Progress Note ---
Date of Service June 19, 2023 Assessment & Plan (1) Transaminitis: (2) Weakness: (3) Myalgia: (4) TMJ (temporomandibular joint syndrome): Júnior Zhao is a 22yo male w/ pmh of TMJ syndrome presenting with worsening sx of myalgias and weakness, predominantly in bilateral lower extremities. DDX includes 1. GBS, 2. Lyme disease, and 3. myasthenia gravis. Based on the patient's presentation of gradual progressive lower extremity weakness in the context of +lyme, +CMV, and +EBV studies, my impression is that this is most likely Guillain-Verdugo syndrome. However, other possible diagnoses cannot be ruled out yet. LE weakness/ Paresthesias/ Myalgias: - +CMV IgM and IgG, +EBV VCA IgM/IgG and EBNA IgG - +Lyme IgM, reflex Western blot pending - Blood cultures pending - MRI brain/C-spine w/wo contrast unremarkable. L-spine MRI and LP pending. - Continue doxycycline for empiric Lyme coverage. Continue vancomycin and ceftriaxone for possible neuro lyme. Pending Lyme Western Blot. - Since the patient is immunocompetent, consider stopping acyclovir and dexamethasone since neither medication is strongly indicated or known to have significant benefit in the treatment of GBS. Will ultimately consult Infectious Disease before making any changes. Input from Neurology and infectious disease is greatly appreciated. - For now, continue IVIG for treatment of GBS and monitor pt symptoms for improvement. Pt expected to remain here over the weekend. Dispo: admit to PCU/tele VTE ppx: low-risk, deferred FEN/GI: regular diet Full Code Admission and Anticipated Discharge Date Admission Date: June 18, 2023 Supervising Physician Co-Signing Physician Notes I personally examined the patient and verified renee points of history and exam, discussed case, and agree with decision making and plan documented by medical student Blaine Joseph. Patient evaluated by neurology and diagnosed clinically with Guillain-Verdugo syndrome. Evaluated patient following lumbar puncture today. Patient reports feeling much better since initial admission. Laboratory workup thus far shows with positive CMV IgG M/IgG, EBV VCA IgM/IgG, EBNA IgG from [facility]. Lumbar puncture today with evaluation of CSF, culture pending in addition to fluid evaluation at this time. Anaplasmosis and babesiosis smear negative, antibodies pending. Head CT, brain MRI, and cervical MRI unremarkable; MRI lumbar spine pending. On admission, patient started on IV dexamethasone, ceftriaxone, doxycycline, vancomycin, acyclovir, and IVIG. Cultures pending. Infectious disease consultation placed. Will discontinue dexamethasone. PT referral placed. VSS. Transaminase levels improving. Discussed case with patient and his parents. Pardeep Zhao is a 22yo male w/ pmh of TMJ syndrome presenting with worsening sx of myalgias and weakness, predominantly in bilateral lower extremities. Today pt resting comfortably w/ mom at bedside. He states he is doing better since he is able to stand today, but was not able to do so yesterday. Review of Systems Constitutional: Constitutional Denies fever, chills, sweats, dizziness, sleep disturbances, + general weakness HEENT Denies dysphagia, sinus pain, sore throat, taste disturbances. Denies decreased hearing, ear pain, ear discharge, nasal discharge. Denies recent visual problems, blurring, double vision, dry eyes. + headaches Respiratory Denies SOB, cough, sputum production, wheezing, pleuritic pain, hemoptysis CV Denies chest pain, palpitations, bradycardia, tachycardia, edema, + claudication GI Denies n/v/d, constipation, heartburn, abdominal tenderness, change in bowel habits Denies dysuria, hematuria, frequency, incontinence, retention, or urgency MSK Denies joint pain, + decreased range of motion due to weakness, + muscle weakness and soreness that is worse w/ exertion Integumentary Denies rash, dryness, or skin lesions. Neurologic Denies altered mental statu. + Numbness and tingling in extremities, predminantly bilateral lower extremities Physical Exam Physical Exam: General Alert and oriented x 4, tired appearing, in no acute distress. HEENT Normocephalic, atraumatic, pupil equal round reactive to light, neck supple, trachea midline Respiratory Chest is clear to auscultation bilaterally with no wheezing, rales, or rhonchi Cardiovascular Heart has regular rate and rhythm with no rubs, murmurs, or gallops Abdomen Soft, nontender, nondistended Musculoskeletal 2+ distal pulses palpated in all four extremities. + reduced range of motion and 4/5 strength bilaterally. Psychiatric Appropriate mood and affect. Neurologic * + failed finger to nose and + failed [id number] due to muscle weakness * Pt unable to walk or stand without support * globally diminished 1+ deep tendon reflexes * reduced sensation to temperature in lower extremities. * No dysdiadochokinesia. CN2 - no vision changes CN3, CN4, CN6 - no occulomotor movement disturbances CN5 - no facial sensation disturbances CN7 - + left sided facial weakness CN8 - no hearing or balance changes CN9 - no changes in taste and tongue sensation CN10 - no dysphagia or difficulty talking CN11 - no difficulty shrugging or turning head CN12 - tongue movement intact Results & Data Results & Data Vital Signs (Past 12 Hours) Vital Signs Temp Pulse Pulse Resp BP Pulse Ox O2 Del Method 06/19/23 08:00 99 H 06/19/23 07:18 37.0 C 83 19 126/72 98 Room Air 06/19/23 02:45 36.6 C 80 18 126/79 99 Room Air 06/19/23 00:16 101 H 06/18/23 23:10 36.6 C 99 H 18 138/82 99 Room Air 06/18/23 22:35 36.7 C 92 H 18 145/80 H 100 Room Air Laboratory Results 06/19/23 06/18/23 06/18/23 05:49 20:33 19:25 WBC 8.56 RBC 4.93 Hgb 14.6 Hct 40.5 L MCV 82.2 MCH 29.6 MCHC 36.0 RDW Std Deviation 39.4 RDW Coeff of Yennifer 13.3 Plt Count 203 MPV 10.3 Sodium 137 Potassium 3.9 Chloride 107 Carbon Dioxide 23 Anion Gap 7 BUN 16 Creatinine 0.94 Est Cr Clr Drug Dosing 135.3 Est GFR ( Amer) 132.9 Est GFR (Non-Af Amer) 114.6 BUN/Creatinine Ratio 17.0 Glucose 179 H Calcium 9.3 Total Bilirubin 0.6 AST 54 H ALT 133 H Alkaline Phosphatase 62 Total Creatine Kinase Total Protein 7.2 Albumin 4.3 Globulin 2.9 Albumin/Globulin Ratio 1.5 Adenovirus (PCR) Not Detected Anaplasma Smear See Comment Babesia Smear See Comment B. pertussis DNA (PCR) Not Detected B.parapertussis DNA PCR Not Detected C. pneumoniae DNA (PCR) Not Detected Coronavirus OC43 (PCR) Not Detected Coronavirus HKU1 (PCR) Not Detected Coronavirus 229E (PCR) Not Detected SARS-CoV-2 (PCR) Not Detected Coronavirus NL63 (PCR) Not Detected Human Metapneumovir PCR Not Detected Influenza Type A (PCR) Not Detected Influenza Type B (PCR) Not Detected M. pneumoniae (PCR) Not Detected Parainfluenza 1 (PCR) Not Detected Parainfluenza 2 (PCR) Not Detected Parainfluenza 3 (PCR) Not Detected Parainfluenza 4 (PCR) Not Detected RSV (PCR) Not Detected Entero/Rhino (PCR) Not Detected 06/18/23 06/18/23 17:25 17:14 WBC 10.90 H RBC 5.79 Hgb 17.0 Hct 46.9 MCV 81.0 MCH 29.4 MCHC 36.2 H RDW Std Deviation 38.5 RDW Coeff of Yennifer 13.3 Plt Count 249 MPV 10.2 Immature Gran % (Auto) 0.4 Neut % (Auto) 68.6 Lymph % (Auto) 23.9 Mckinley % (Auto) 5.6 Eos % (Auto) 0.9 Baso % (Auto) 0.6 Neut # (Auto) 7.49 H Lymph # (Auto) 2.60 Mckinley # (Auto) 0.61 H Eos # (Auto) 0.10 Baso # (Auto) 0.06 Immature Gran # (Auto) 0.04 Sodium 139 Potassium 4.1 Chloride 106 Carbon Dioxide 24 Anion Gap 9 BUN 17 Creatinine 0.89 Est Cr Clr Drug Dosing Not Reportable Est GFR ( Amer) 140.7 Est GFR (Non-Af Amer) 121.4 BUN/Creatinine Ratio 19.1 Glucose 106 H Calcium 10.2 Total Bilirubin 0.6 AST 69 H ALT 167 H Alkaline Phosphatase 78 Total Creatine Kinase 225 H Total Protein 8.1 Albumin 5.1 H Globulin 3.0 Albumin/Globulin Ratio 1.7 Procalcitonin 0.04 Adenovirus (PCR) Anaplasma Smear Babesia Smear B. pertussis DNA (PCR) B.parapertussis DNA PCR Lyme Disease Screen Equivocal H Lyme Disease IgG Ab Negative Lyme Disease IgM Ab Positive H Monoscreen Positive A Diagnostic Findings Brain MRI 06/18/23 20:48 FINDINGS: Brain: Unremarkable. No mass. No hemorrhage. No acute infarct. The flow voids at the base of the brain are intact. Normal enhancement of the brain parenchyma. The dural venous sinuses are patent. Ventricles: Unremarkable. No ventriculomegaly. Bones/joints: Unremarkable. No acute fracture. Sinuses: Unremarkable as visualized. No acute sinusitis. Mastoid air cells: Unremarkable as visualized. No mastoid effusion. Orbits: Unremarkable as visualized. IMPRESSION: Negative MRI of the brain. Cervical Spine MRI 06/18/23 21:56 FINDINGS: Vertebrae: There are 7 cervical type vertebral bodies with a mild generalized curve to the left and shallow cervical lordosis. There is normal vertebral body height and alignment. The bone marrow signal is normal. No acute fracture. Spinal cord: The cord is normal size, shape and signal characteristics. The craniocervical junction is normal without evidence of Chiari malformation. Soft tissues: The cervical flow voids are intact. DISCS/SPINAL CANAL/NEURAL FORAMINA: C2-C3: Unremarkable. No significant disc disease. No stenosis. C3-C4: Unremarkable. No significant disc disease. No stenosis. C4-C5: Unremarkable. No significant disc disease. No stenosis. C5-C6: Unremarkable. No significant disc disease. No stenosis. C6-C7: Unremarkable. No significant disc disease. No stenosis. C7-T1: Unremarkable. No significant disc disease. No stenosis. IMPRESSION: Negative MRI of the cervical spine. Medications Administered Diphenhydramine HCl (Diphenhydramine Capsule 25 Mg Cap) 25 mg PO PRE-TREAT@0245 [facility] Stop: 06/23/23 02:46 Last Admin: 06/19/23 03:31 Dose: 25 mg Documented By: MARIAN Dexamethasone 10 mg/ Syringe 2.5 mls @ 1 mls/min IV Q6H [facility] Stop: 07/19/23 00:14 Last Admin: 06/19/23 06:19 Dose: 1 mls/min Documented By: Admin: 06/19/23 01:18 Dose: 1 mls/min Documented By: MARIAN Acyclovir Sodium 850 mg/ (Dextrose) 267 mls @ 250 mls/hr IV Q8H [facility]; Protocol Stop: 06/29/23 00:59 Last Infusion: 06/19/23 05:59 Dose: Infused Documented By: Admin: 06/19/23 04:47 Dose: 250 mls/hr Documented By: MARIAN Immune Globulin (Octagam 10%) 200 mls @ 50.88 mls/hr IV Q24H [facility]; Protocol Stop: 06/23/23 09:41 Last Admin: 06/19/23 07:12 Dose: 1 mg/kg/min, 50.9 mls/hr Documented By: JOHN Immune Globulin (Octagam 10%) 100 mls @ 50.88 mls/hr IV Q24H [facility]; Protocol Stop: 06/23/23 06:43 Last Titration: 06/19/23 07:16 Dose: Infused Documented By: Admin: 06/19/23 05:15 Dose: 1 mg/kg/min, 50.9 mls/hr Documented By: MARIAN Immune Globulin (Octagam 10%) 50 mls @ 50.88 mls/hr IV Q24H [facility]; Protocol Stop: 06/23/23 04:29 Last Titration: 06/19/23 05:30 Dose: Infused Documented By: Admin: 06/19/23 04:17 Dose: 1 mg/kg/min, 50.9 mls/hr Documented By: MARIAN Doxycycline Hyclate 100 mg/ (Dextrose) 100 mls @ 50 mls/hr IV Q12H [facility] Stop: 06/29/23 08:59 Last Admin: 06/19/23 08:34 Dose: 50 mls/hr Documented By: JOHN
--- NOTE | 2023-06-19 12:17 | Fluoroscopy Report ---
LUMBAR PUNCTURE UNDER FLUOROSCOPY CLINICAL HISTORY: Muscle weakness; evaluate for GBS PROCEDURE: Procedure and risks were explained. Informed consent was obtained. A final timeout was com pleted. The patient was placed prone on the fluoroscopic examination table. The lower lumbar region w as prepped and draped in sterile fashion. 1% lidocaine was utilized for skin anesthesia. Utilizing fluoroscopic guidance, a 22-gauge spinal needle was advanced into the intrathecal space at the L3-4 disc space level. 2 spot images were obtained. Approximately 8 mL of clear CSF fluid was rem esthela and sent to lab for analysis. The needle was removed and Band-Aid applied. The patient tolerated the procedure well. Vital signs will be monitored postprocedure. Total fluoroscopy time 11 seconds. Study dose is 6.80 mGy. IMPRESSION: Lumbar puncture as detailed above. Performed, dictated, and signed by Lisandro Raymond PA-C; to be co-signed by Dr. Philippe Hernandez. Electronically signed by: Philippe Hernandez M.D. 06/19/2023 12:25 PM
[2023-06-19 12:30] LABS: Appearance CSF Clear; CSF Count Tube # 3; CSF Xanthrochromic No xanthochromia; Color CSF Colorless; Red Blood Cell CSF Manual 0 (0-); White Blood Cell CSF Manual 3 (0-5)
[2023-06-19 12:34] LABS: Total Protein CSF 144.6 mg/dl (15-45)
[2023-06-19 13:45] LABS: Cryptococcus neoformans/ga PCR Not Detected (NotDetected); Cytomegalovirus PCR Not Detected (NotDetected); Enterovirus PCR Not Detected (NotDetected); Escherichia coli K1 PCR Not Detected (NotDetected); Haemophilius influenzae PCR Not Detected (NotDetected); Herpes Simplex Virus 1 PCR Not Detected (NotDetected); Herpes Simplex Virus 2 PCR Not Detected (NotDetected); Human Herpes Virus 6 PCR Not Detected (NotDetected); Human Parechovirus PCR Not Detected (NotDetected); Listeria monocytogenes PCR Not Detected (NotDetected); Neisseria meningitidis PCR Not Detected (NotDetected); Streptococcus agalactiae PCR Not Detected (NotDetected); Streptococcus pneumoniae PCR Not Detected (NotDetected); Varicella Zoster Virus PCR Not Detected (NotDetected)
[2023-06-19] MEDS ORDERED: ONDANSETRON INJ 2 MG/ML 2 ML VIAL IV PRN (14:09)
[2023-06-19] MEDS: MoRPHine SULFATE 2 MG/ML CARP IV STA (14:13)
[2023-06-19] MEDS: ACETAMINOPHEN 1,000 MG/100 ML VIAL IV STA (14:23)
--- NOTE | 2023-06-19 17:57 | Infectious Disease Consult ---
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 Symptoms initially started in late April with headache and paresthesias of hands and feet. Then he began having myalgias in all four extremities. He was seen in the ED on 06/10 at which time he had a negative CT head with mild transaminitis. He had outpatient follow up through [facility] where he had ongoing mild transaminitis, +CMV IgM and IgG, +EBV VCA IgM/IgG and EBNA IgG (suggestive of recent infection). Lyme, ehrlichiosis, anaplasmosis testing negative, babesiosis testing equivocal. LEIGHANN, ESR negative, CRP slightly elevated. He was started on doxycycline on 06/11 which he has continued taking. He subsequently presented to the ED on 06/17 when he had sudden worsening of LE weakness where he could not walk. He has not had any fevers, no recent vaccinations, no tick bites or rashes. He went on a fishing trip in mid- April. No neck pain, bowel/bladder incontinence. Here he has been afebrile, vss. WBC 10.9>8.5. Cr wnl. AST 69, ALT 167, Alk phos and bili wnl. CK 225. S/p LP 06/18 with 3 WBC, elevated protein to 144.6, glucose elevated to 88. MRI brain negative. MRI c-spine negative. He was seen by neurology with c/f GBS and started on IVIG with noted improvement in examination. ID consulted on 06/18 for assistance. Telepresenter not available at this time, consult based on chart review. Guillain [place] syndrome most certainly could result from infections. This includes CMV and EBV. Lyme is a rare cause of GBS. CMV and EBV in an immunocompetent individual does not require treatment. Note LFT abnormalities can be seen if there is active CMV infection. For Lyme, neurologic findings would include meningitis, radiculoneuritis, facial nerve palsy, encephalomyelitis, peripheral neuropathy. His presentation doesnt seem consistent with Lyme encephalitis or meningitis. CSF studies for Lyme disease would include show pleocytosis with primarily lymphocytes or monocytes. However, patient only has 3 WBCs. I do note that he had negative Lyme testing recently which is now positive. ?whether he has a new infection, though, per chart review, it doesnt seem like he reported tick bites or rashes. It is possible he was exposed during his fishing trip. Chart review notes left sided facial weakness. Doxycycline should be adequate for nerve palsies, however will keep him on CTX in this case until a more thorough history/exam can be obtained and results are available from Western Blot. Since CSF WBC is negative, along with negative HSV on ME panel, I will stop vancomycin and acyclovir. He had equivocal results for Babesia. Testing here is in process, smear negative. Will f/u results, though his clinical presentation doesnt seem consistent with Babesia as well. Note doxycycline does not cover Babesia. 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 If questions or concerns, contact Infectious Disease Call Center . Viky Ulloa MD [facility], Division of Infectious Diseases [facility]: [phone] Consultation Information This patient recommendation is based on a telemedicine consult request which was completed asynchronously through chart review and information provided by the primary physician. The patient was not seen or examined today. The evaluation is consultative in nature and all patient care and treatment decisions can either be accepted or rejected by the patient's primary hospital-based treating physician using their own independent medical judgment for their patient. Clamper contact information: Please call [facility] Call Center [phone]. (Phone Number For Physician Use Only) Time Spent Reviewing Chart: 31+ minutes History of Present Illness Reason for Consultation: Guillan [place], CMV, EBV, Lyme infection Attending Physician: Eduarda Godwin DO History of Present Illness 22yo M with h/o TMJ syndrome who presented on 06/17 with worsening myalgias, paresthesias, and LE weakness. Symptoms initially started in late April with headache and paresthesias of hands and feet. Then he began having myalgias in all four extremities. He was seen in the ED on 06/10 at which time he had a negative CT head with mild transaminitis. He had outpatient follow up through [facility] where he had ongoing mild transaminitis, +CMV IgM and IgG, +EBV VCA IgM/IgG and EBNA IgG (suggestive of recent infection). Lyme, ehrlichiosis, anaplasmosis testing negative, babesiosis testing equivocal. LEIGHANN, ESR negative, CRP slightly elevated. He was started on doxycycline on 06/11 which he has continued taking. He subsequently presented to the ED on 06/17 when he had sudden worsening of LE weakness where he could not walk. He has not had any fevers, no recent vaccinations, no tick bites or rashes. He went on a fishing trip in mid- April. No neck pain, bowel/bladder incontinence. Here he has been afebrile, vss. WBC 10.9>8.5. Cr wnl. AST 69, ALT 167, Alk phos and bili wnl. CK 225. S/p LP 06/18 with 3 WBC, elevated protein to 144.6, glucose elevated to 88. MRI brain negative. MRI c-spine negative. He was seen by neurology with c/f GBS and started on IVIG with noted improvement in examination. ID consulted on 06/18 for assistance. Allergies Allergy/AdvReac Type Severity Reaction Status Date / Time grass pollen Allergy Unknown Unknown Verified 06/19/23 01:08 tree and shrub pollen Allergy Unknown Unknown Verified 06/19/23 01:08 weed pollen Allergy Unknown Unknown Verified 06/19/23 01:08 Home Medications Medication Instructions Recorded Confirmed Type ascorbic acid (vitamin C) 500 mg 500 mg PO DAILY 06/18/23 06/18/23 History tablet (Vitamin C) cholecalciferol (vitamin D3) 50 50 mcg PO DAILY 06/18/23 06/18/23 History mcg (2,000 unit) tablet (Vitamin D3) doxycycline hyclate 100 mg tablet 100 mg PO BID 06/18/23 06/18/23 History levocetirizine 5 mg tablet (Xyzal) 5 mg PO DAILY PRN allergies 06/18/23 06/18/23 History zinc 50 mg capsule 50 mg PO DAILY 06/18/23 06/18/23 History Patient History Medical History (Updated 06/19/23 @ 18:04 by Viky Ulloa MD) TMJ (temporomandibular joint syndrome) Surgical History History of hernia surgery 2009 Family History Mother Hypertension Environmental allergies Grandmother (Maternal) Hypertension Breast cancer Brother History of adverse reaction to anesthesia Father History of adverse reaction to anesthesia Other No family history of bleeding disorder Social History Smoking Status: Never smoker Do You Dip or Chew Tobacco: No; Hx Alcohol Use: Yes Alcohol type: beer Alcohol Intake Frequency: 2-4 x/Month Hx Substance Use: No Preferred Language: Croatian Communication Ability: Effective Internal Controls Specialist Required: No Beliefs That Will Affect Care: None marital status: Single Current Living Situation: Other Current Living Situation Comment: Student, lives with a roommate current occupational status: student Other Information That Helps Us Care for You: No Feels Safe at Home: Yes Safety Concerns: Feels Safe At This Time Assistive Devices: None Results & Data Vital Signs (Past 12 Hours) Vital Signs Temp Pulse Pulse Resp BP Pulse Ox O2 Del Method 06/19/23 16:10 37.1 C 95 H 19 115/65 97 Room Air 06/19/23 15:01 110 H 06/19/23 14:04 102 H 18 116/68 97 Room Air 06/19/23 13:23 111 H 18 116/65 98 Room Air 06/19/23 12:53 113 H 16 128/65 98 Room Air 06/19/23 12:38 36.7 C 103 H 18 92/59 L 93 Room Air 06/19/23 10:27 36.5 C 94 H 19 137/73 97 Room Air 06/19/23 08:00 99 H 06/19/23 07:18 37.0 C 83 19 126/72 98 Room Air Laboratory Results Labs reviewed. Diagnostic Findings Imaging reviewed.
[2023-06-19] MEDS: GADOBUTROL 65ML VIAL IV ONE (18:28)
--- NOTE | 2023-06-19 19:11 | Magnetic Resonance Report ---
MRI OF THE LUMBAR SPINE COMBO CLINICAL HISTORY: Lower extremity weakness. Paresthesias. COMPARISON STUDY: No priors. TECHNIQUE: MRI of the lumbar spine is performed utilizing various T1 and T2-weighted sequences in the axial and sagittal planes. Contrast enhanced sequences are acquired following the IV administration of 8 cc of Gadavist. FINDINGS: Lumbar spine: Vertebral body height and alignment are maintained throughout the lumbar spine. Normal marrow signal intensity is preserved throughout the visualized bony structures. Mild lumbar levocurva ture is centered at L3. The transverse and spinous processes appear intact. There is no evidence of s pondylolysis. No destructive bony lesion is seen. Intervertebral discs: Normal height and signal intensity. Spinal cord and central canal: The visualized spinal cord is normal in morphology and signal intensit y. The conus medullaris terminates at the level of L1. The nerve roots of the cauda equina are normal in morphology and show mild abnormal postcontrast enhancement. There is no evidence of epidural flui d collection. L1-L2: Unremarkable. L2-L3: Unremarkable. L3-L4: Unremarkable. L4-L5: Unremarkable. L5-S1: Unremarkable. Sacrum: The visualized sacrum is normal in morphology and signal intensity. Soft tissues: The paraspinous soft tissues are within normal limits. The retroperitoneal structures a re grossly unremarkable but incompletely evaluated. IMPRESSION: 1. There is mild abnormal postcontrast enhancement of the nerve roots of the cauda equina. The appear ance suggests Guillain-Verdugo? syndrome. Correlate with clinical findings and lumbar puncture results. 2. There is no evidence of epidural fluid collection. 3. There is no disc herniation, central canal stenosis, or neural foraminal narrowing seen throughout the lumbar spine. 4. No destructive bony process is seen. Electronically signed by: Maurice Cordon M.D. 06/19/2023 7:09 PM
[2023-06-20 06:51] LABS: Creatinine Clr Calc Pharmacy 146.2 ml/min; Est GFR (Non-African American) 122.5 ml/min
[2023-06-20] MEDS ORDERED: VANCOMYCIN LEVEL ONE (09:00)
[2023-06-20] MEDS: ACETAMINOPHEN 1,000 MG/100 ML VIAL IV PRN (09:33)
[2023-06-20] MEDS: SODIUM CHLORIDE 0.9% 1,000 ML IV SCH (09:34)
[2023-06-20 10:11] LABS: Calcium 9.3 mg/dl (8.6-10.3); Magnesium 2.1 mg/dl (1.7-2.4)
--- NOTE | 2023-06-20 10:12 | Neurology Progress Note ---
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 He has been responding well to IVIG. He continues to have mild proximal weakness for the shoulder and hip girdles as well as a subtle left facial palsy. He has diminished deep tendon reflexes throughout, absent at the Achilles tendons. 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 His lumbar spine MRI reveals enhancement of the nerve roots of the cauda equina, which is also consistent with his diagnosis. He does have positive EBV and CMV IgM and IgG antibodies and also has a positive Lyme IgM antibody screen. All of these infections have been associated with Guillain- Verdugo syndrome. He has no known history of immunocompromise. His case has been reviewed by infectious disease. He does have a mild transaminitis. Other than Guillain-Verdugo related signs and symptoms, he is otherwise well-appearing. Continue with IVIG 0.4 g/kg/day for 5 days per protocol, currently day 2. Continue with ceftriaxone, follow-up with Lyme Western blot. Given that his symptoms have been improving with IVIG, I expect a fairly good prognosis for recovery. Recovery can be prolonged, however, and may take several months. The majority of patients with GBS make a full recovery by 1 year. A minority of patients with GBS may experience a relapse of symptoms after treatment is discontinued although repeat treatment with IVIG is not typically needed in this context. We may consider obtaining outpatient EMG evaluations as well for additional diagnostic support and to provide some prognostic information going forward. He should have consultations with PT/OT. He may follow-up with me in outpatient clinic 2 to 3 weeks from discharge. Admission and Anticipated Discharge Date Admission Date: June 18, 2023 Subjective Follow-up regarding Guillain-Verdugo syndrome The patient is a 22-year-old male who was admitted to the [facility] June 18, 2023 with a 4-week history of progressive weakness and ambulatory dysfunction. 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 Please see my initial consultation completed yesterday for further de tails. He has continued with IVIG as recommended and reports improvement in his symptoms. He continues to have a mild to moderate degree of weakness, notably hip and shoulder girdle. He also continues to exhibit a mild left facial palsy although able to close the eye and has reasonably good brow furrow on the left. He denies headache, neck or low back pain. He reports mild chronic right hip p ain. No other arthralgia. No rash. He denies experiencing any difficulty with speech, swallowing. No difficulty with breathing. No difficulty with urination, has not moved his bowels yet. Has been eating and drinking well. His lumbar puncture was completed yesterday, results consistent with albuminocytologic dissociation. He had a lumbar spine with and without contrast completed as well yesterday. There was evidence of abnormal postcontrast enhancement of the nerve roots of the cauda equina but often associates with GBS. His case was reviewed by infectious disease yesterday, noting his positive CMV and EBV IgM/IgG antibodies, as well as a positive Lyme IgM antibody. His medication regimen has been adjusted, dexamethasone, acyclovir, vancomycin, and doxycycline have been discontinued. He continues with ceftriaxone and IVIG as above. Review of Systems Constitutional: no fever, no chills and no sweats Eyes: no diplopia Respiratory: no dyspnea Cardiovascular: no chest pain and no edema Neurologic: + gait abnormality, + unsteadiness and + generalized weakness; no loss of sensation, no lack of coordination, no tremor(s), no abnormal movements, no dizziness, no headache(s), no confusion and no memory loss Results & Data Vital Signs (Past 12 Hours) Vital Signs Temp Pulse Pulse Resp BP BP Pulse Ox 06/20/23 07:13 36.4 C L 71 18 135/77 99 06/20/23 02:40 36.6 C 77 17 130/72 96 06/19/23 23:56 98 H 06/19/23 22:49 36.6 C 87 18 147/66 H 98 O2 Del Method 06/20/23 07:13 Room Air 06/20/23 02:40 Room Air 06/19/23 23:56 06/19/23 22:49 Room Air Laboratory Results Creatinine 0.87. CSF analysis reviewed, clear, colorless, no xanthochromia, CSF WBC 3, RBC 0, CSF glucose 88, CSF protein 144.6, meningoencephalitis PCR panel negative. Diagnostic Findings Lumbar spine MRI with and without contrast results as described above, I independently reviewed these images and was able to appreciate the finding of enhancement of the nerve roots in the cauda equina as described. No other abnormalities observed. Exam (Neuro) Constitutional: well developed; no acute distress Eyes: normal visual yao by confrontation, PERRL and EOM intact bilaterally; no nystagmus Neurologic: Oriented to:: Person, Place and Time Memory: Short Term Intact and Remote Intact Attention: Span Intact and Concentration Intact Speech Fluency: negative Dysarthria or Dysfluency Speech Aphasia: negative Aphasia Fund of Knowledge: Current Events, Past History and Vocabulary Cranial Nerves: Normal II, III, IV, , V, VIII, IX, X, XI and XII; Abnorm VII (Mild left facial palsy noted) Motor Strength: Weakness Upper Extremities (Proximal) and Weakness Lower Extremities (Proximal) Motor Tone: Normal Lower Extremities and Normal Upper Extremities Muscle Bulk/Involuntary Movements: No Involuntary Movements; negative Muscle Atrophy Sensation: Light Touch Intact and Proprioception Intact Coordination: Limited Balance; negative Dysdiadochokinesia, Finger-Nose Abnormal or Heel-Leija Abnormal Deep Tendon Reflexes: Rt Triceps: 1+, Lt Triceps: 1+, Rt Biceps: 1+, Lt Biceps: 1+, Rt Brachioradialis: 1+, Lt Brachioradialis: 1+, Rt Patellar: 0, Lt Patellar: 1+, Rt Ankle: 0 and Lt Ankle: 0 Gait: Ataxic Coding Level of Care Code 70124 SUB INP/OBS CARE 3/50MIN Diagnoses GBS (Guillain Archer syndrome) G61.0 Time Spent (min) 50 Comment Total time includes patient contact, chart review, counseling, note preparation
[2023-06-20] MEDS: cefTRIAXone SODIUM 2,000 MG in DEXTROSE 5 % MINI-B 50 ML IV SCH (12:42)
--- NOTE | 2023-06-20 15:53 | Hospitalist Progress Note ---
Date of Service June 20, 2023 Assessment & Plan (1) Transaminitis: (2) Weakness: (3) Myalgia: (4) TMJ (temporomandibular joint syndrome): (5) GBS (Guillain [place] syndrome): Plan 22 year old male with h/o TMJ syndrome presenting with progressively worsening myalgias, paresthesias, and LE weakness admitted for Guillain-Verdugo syndrome #Guillain-Verdugo Syndrome cont IVIg (day 2) cont ceftriaxone pending Lyme western blot Blood cultures negative at 24hrs CSF cx no growth to date MRI brain, c spine negative MRI lumbar spine + for enhancement at the cauda equina Neurology consulted, appreciate recs - continue IVIg, consider EMG studies, d/c dexamethasone ID consulted - dc doxycycline, vancomycin, acyclovir Per pt was tested at [facility] for HIV and was negative, will repeat, consent obtained CSF studies consistent with GBS +CMV IgM and IgG, +EBV VCA IgM/IgG and EBNA IgG +Lyme IgM, reflex Western blot pending PT/OT Dispo: admit to PCU/tele VTE ppx: low-risk, deferred FEN/GI: regular diet Full Code Admission and Anticipated Discharge Date Admission Date: June 18, 2023 Supervising Physician Co-Signing Physician Notes I personally examined the patient and verified renee points of history and exam, discussed case, and agree with decision making and plan documented by Dr. Fletcher. Patient with continued improvement today, he states he is feeling increased strength in his distal muscle groups, still feels some weakness in his proximal muscle groups upper and lower extremities. Patient will continue IVIG protocol to complete 5 days. He remains on ceftriaxone. Will benefit from PT evaluation and treatment. Subjective Patient seen and evaluated at bedside this morning. No acute events overnight. Beginning to recover strength. Still feels weak in pelvic girdle and b/l upper arms. Able to ambulate to the bathroom on his own with minimal assistance. Denies CP, SOB, N/V/D. Review of Systems Review of Systems: reviewed, per HPI Physical Exam Physical Exam: Constitutional: no acute distress HEENT: NCAT CV: regular rhythm, no murmur appreciated, extremities well-perfused, no LE edema Resp: CTABL, no wheezes/rales/rhonchi appreciated, no increased work of breathing GI: soft, nondistended, nontender, BS normoactive MSK: no gross deformities appreciated Skin: warm, dry, no rash appreciated Neuro: alert, oriented, weakness of pelvic and shoulder girdles, improved from prior Results & Data Results & Data Vital Signs (Past 12 Hours) Vital Signs Temp Pulse Resp BP Pulse Ox O2 Del Method 06/20/23 14:34 36.6 C 86 18 121/71 98 Room Air 06/20/23 10:59 36.3 C L 71 18 133/78 99 Room Air 06/20/23 07:13 36.4 C L 71 18 135/77 99 Room Air Resident Activity Tracking Resident Involvement: Resident Care Provided Care Provided: Adult Hospital Medicine
[2023-06-21 06:44] LABS: Est GFR (African American) 146.2 ml/min; Est GFR (Non-African American) 126.2 ml/min
--- NOTE | 2023-06-21 14:31 | Hospitalist Progress Note ---
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 presenting with progressively worsening myalgias, paresthesias, and LE weakness admitted for Guillain-Verdugo syndrome #Guillain-Verdugo Syndrome cont IVIg (day 3) cont ceftriaxone pending Lyme western blot Blood cultures negative at 48hrs CSF cx no growth MRI brain, c spine negative MRI lumbar spine + for enhancement at the cauda equina Neurology consulted, appreciate recs - continue IVIg, consider EMG studies, d/c dexamethasone ID consulted - dc doxycycline, vancomycin, acyclovir Per pt was tested at [facility] for HIV and was negative, will repeat, consent obtained CSF studies consistent with GBS +CMV IgM and IgG, +EBV VCA IgM/IgG and EBNA IgG +Lyme IgM, reflex Western blot pending PT/OT Dispo: admit to PCU/tele VTE ppx: low-risk, deferred FEN/GI: regular diet Full Code Of note, on this date verbal consent was given by pt in presence of his father for use of this record in a de-identified form for scholarly work by Dr. Fletcher, Dr. Martin, and Dr. Godwin Admission and Anticipated Discharge Date Admission Date: June 18, 2023 Supervising Physician Co-Signing Physician Notes I personally examined the patient and verified renee points of history and exam, discussed case, and agree with decision making and plan documented by Dr. Fletcher. Patient continues to improve in overall strength, he was working with physical therapy today, continues to feel some weakness in his proximal muscle groups of upper and lower extremities. Patient will continue IVIG protocol to complete 5 days, today day 3. He remains on ceftriaxone pending CSF Lyme studies. Forms completed for [facility] as patient current undergrad student, for excuse of classes and possible need of accommodations when returning. Patient provided verbal consent today for case presentation of deidentified to be presented by members of the medical team involved in his care. Subjective Patient seen and evaluated at bedside this morning. No acute events overnight. Continues to recover strength. Ambulating with minimal to no assistance. Denies CP, SOB, N/V/D. Review of Systems Review of Systems: reviewed, per HPI Physical Exam Physical Exam: Constitutional: no acute distress HEENT: NCAT CV: regular rhythm, no murmur appreciated, extremities well-perfused, no LE edema Resp: CTABL, no wheezes/rales/rhonchi appreciated, no increased work of breathing GI: soft, nondistended, nontender, BS normoactive MSK: no gross deformities appreciated Skin: warm, dry, no rash appreciated Neuro: alert, oriented, weakness of pelvic and shoulder girdles, improved from prior Results & Data Results & Data Vital Signs (Past 12 Hours) Vital Signs Temp Pulse Resp BP BP Pulse Ox O2 Del Method 06/21/23 10:44 36.7 C 72 18 123/77 100 Room Air 06/21/23 07:20 36.3 C L 68 19 119/77 98 Room Air 06/21/23 05:04 37.0 C 70 17 122/73 98 Room Air Resident Activity Tracking Resident Involvement: Resident Care Provided Care Provided: Adult Hospital Medicine
[2023-06-22 07:30] LABS: Creatinine Clr Calc Pharmacy 151.4 ml/min; Est GFR (Non-African American) 124.3 ml/min
--- NOTE | 2023-06-22 07:46 | Hospitalist Progress Note ---
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 (day 3) cont ceftriaxone pending Lyme western blot Blood cultures negative at 48hrs CSF cx no growth MRI brain, c spine negative MRI lumbar spine + for enhancement at the cauda equina Neurology consulted, appreciate recs - continue IVIg, consider EMG studies, d/c dexamethasone ID consulted - dc doxycycline, vancomycin, acyclovir Per pt was tested at [facility] for HIV and was negative, will repeat, consent obtained CSF studies consistent with GBS +CMV IgM and IgG, +EBV VCA IgM/IgG and EBNA IgG +Lyme IgM, reflex Western blot pending PT/OT Dispo: admit to PCU/tele VTE ppx: low-risk, deferred FEN/GI: regular diet Full Code Of note, on this date verbal consent was given by pt in presence of his father for use of this record in a de-identified form for scholarly work by Dr. Fletcher, Dr. Martin, and Dr. Godwin Admission and Anticipated Discharge Date Admission Date: June 18, 2023 Subjective Patient seen and evaluated at bedside this morning. No acute events overnight. Continues to recover strength. Ambulating with minimal to no assistance. Denies CP, SOB, N/V/D. Review of Systems Constitutional: no fever, no chills and no weakness (b/l weakness in hip flexion/extension and knee flexion/extension) Eyes: no photophobia and no worsening vision Respiratory: no cough, no chest congestion and no dyspnea Cardiovascular: no chest pain and no palpitations Gastrointestinal: no abdominal pain, no nausea, no vomiting, no constipation and no diarrhea/loose stools Genitourinary: + urinary frequency (2/2 iv fluid intake ); no dysuria Neurologic: + tingling (hands and feet), + numbness and + lack of coordination (less balance in legs) Results & Data Results & Data Vital Signs (Past 12 Hours) Vital Signs Temp Pulse Pulse Resp BP Pulse Ox O2 Del Method 06/22/23 02:52 36.5 C 76 16 131/80 99 Room Air 06/21/23 23:56 75 06/21/23 23:25 36.4 C L 66 16 133/82 97 Room Air
--- NOTE | 2023-06-22 08:51 | Neurology Progress Note ---
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 The etiology is not obvious but he has a possible EBV origin or even Lyme disease. The abnormal MRI of the lumbar spine with thickened nerve roots taking up contrast is consistent with either Guillain-Verdugo syndrome or an acute Lyme reaction. On examination he has mild to moderate weakness more proximal and distal without obvious ataxia. He has absent reflexes except for the triceps which are present but diminished. There is no sensory loss. He has no cranial nerve issues currently. There are no meningeal signs or encephalopathy. Overall, his prognosis is quite good and I suspect he will recover completely. This will depend on how much axonopathy he has with this condition, compared to demyelination. An EMG will sort this out. Recommendations: 1. Continue IVIG per protocol. Today is day 4 and tomorrow will be day 5. 2. Continue with physical therapy for strengthening and gait improvement. 3. Awaiting Lyme Western blot and EBV final titers. 4. For now, continue IV Rocephin while in the hospital and likely would recommend converting to p.o. doxycycline for 2 or 3 weeks after discharge. 5. Recommend EMG and nerve conduction studies of both legs and 1 arm in a week or 2 after discharge. 6. Follow-up with Dr. Telles in clinic. Overall, I spent a total of 90 minutes with this case including review of records, review of MRI films, direct evaluation of the patient at bedside, report generation, and discussion of the case with the patient, father, and RN at bedside as well as Dr. House, including differential diagnosis and treatment options. Admission and Anticipated Discharge Date Admission Date: June 18, 2023 Subjective Patient was seen accompanied by his father who was in the room today. Patient states that he started having weakness in his hamstrings somewhere 2-1/2 to 3 weeks ago. The weakness progressed gradually until he could essentially not walk the time he came to the emergency room June 17. The patient had dysesthesias on his tongue arms and legs particularly centered on the hands and feet. There was no sandra numbness or sensory loss he felt. He had no trouble swallowing or breathing. He had no double vision or droopy eyelids. Mentation and speech was good. The patient had no significant lumbar spine pain but he did have pain in his hamstring muscles in the beginning. The patient had left facial weakness which was present on admission. CSF June 18 revealed a protein of 144.6, 3 white cells and 0 red cells. Glucose was mildly elevated at 88. BioFire was unremarkable with no viruses or other organisms detected. Lyme is pending. It was clear and colorless and there is no growth with a negative Gram stain. MRI of the brain was unremarkable with and without contrast. MRI of the cervical spine with and without contrast was unremarkable as well. MRI of the lumbar spine with and without contrast showed thickened enhancing nerve roots without any other abnormalities. I reviewed all 3 of these MRI films. Laboratory studies showed a normal CBC, normal electrolytes and renal function, but elevated AST and ALT. CK was mildly elevated at 225. Lyme antibody testing was equivocal with a positive IgM. Anaplasmosis, babesiosis and other testing was unremarkable. Monospot was positive, and EBV is pending. Patient has received 4 of 5 days of IVIG per protocol for Guillain-Verdugo syndrome. He has markedly improved in his strength since admission and can walk and feels he is stronger up to 50% better than he was on admission. Blood pressure currently is 126/74 and he is afebrile. He is getting ceftriaxone IV still. Results & Data Vital Signs (Past 12 Hours) Vital Signs Temp Pulse Pulse Resp BP Pulse Ox O2 Del Method 06/22/23 07:24 36.4 C L 73 19 126/74 99 Room Air 06/22/23 02:52 36.5 C 76 16 131/80 99 Room Air 06/21/23 23:56 75 06/21/23 23:25 36.4 C L 66 16 133/82 97 Room Air Exam (Neuro) Physical Exam: He is awake and alert. Speech is without aphasia or dysarthria. Mood and affect seem normal and appropriate and thought processes are intact. He is pleasant and cooperative. Extraocular eye muscles are intact without nystagmus. Pupils were 4 mm bilaterally and reactive to light. There is no facial droop or asymmetry. Tongue was midline. Neck strength was normal. There is no ptosis and the remainder of cranial nerve strength including 11 was normal. Stance was reasonable eyes open but he deteriorated with eyes closed Coordination was normal in the arms without tremor or ataxia. Strength is 4/5 in the deltoids, biceps, triceps, hip flexors, quadriceps, and hamstring muscles bilaterally. Strength was close to 4+/5 distally in pipe setter and intrinsic hand muscles. Tibialis anterior, gastrocnemius, and toe extensors were close to 4+/5 also. Reflexes were absent even despite reinforcement maneuvers in all 4 limbs including biceps, brachioradialis, quadriceps, and Achilles tendons bilaterally. Triceps tendon reflexes were 1/4 bilaterally. Toes were downgoing with plantar stimulation bilaterally. 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
--- NOTE | 2023-06-22 11:41 | Infectious Disease Progress Nt ---
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 on 06/17 with worsening myalgias, paresthesias, and LE weakness. Symptoms initially started in late April 2023 with headache and paresthesias of hands and feet. Then he began having myalgias in all four extremities. He was seen in the ED on 06/10 at which time he had a negative CT head with mild transaminitis. He had outpatient follow up through [facility] where he had ongoing mild transaminitis, +CMV IgM and IgG, +EBV VCA IgM/IgG and EBNA IgG (suggestive of recent infection). Lyme, Ehrlichiosis, anaplasmosis testing negative, babesiosis testing equivocal. LEIGHANN, ESR negative, CRP slightly elevated. He was started on doxycycline on 06/11 which he has continued taking. He subsequently presented to the ED on 06/17 when he had sudden worsening of LE weakness where he could not walk. He has not had any fevers, no recent vaccinations, no tick bites or rashes. He went on a fishing trip in mid-April. No neck pain, bowel/bladder i ncontinence. Here he has been afebrile, vss. WBC 10.9>8.5. Cr wnl. AST 69, ALT 167, Alk phos and bili wnl. CK 225. S/p LP 06/18 with 3 WBC, elevated protein to 144.6, glucose elevated to 88. MRI brain negative, MRI C-spine negative, MRI L- spine with mild enhancement of cauda equina c/f GBS. He was seen by neurology with c/f GBS and has been receiving IVIG with significant improvement in weakness. ID consulted on 06/18 for possible Guillain-Knapp and concern for CMV, EBV, and Lyme infections as potential precipitant(s) of GBS. Patient found to have evidence of potentially recent EBV and CMV infection; recent [facility] testing with +CMV IgM and IgG, +EBV VCA IgM/IgG and EBNA IgG (suggestive of recent infection). He previously had negative Lyme testing recently which is now equivocal (+IgM but neg IgG)consider whether this represents a true new Lyme infection given possible exposure during his fishing trip. IgM may sometimes be false positive; WB is pending. Pts clinical presentation is consistent with Guillain-Knapp syndrome. GBS can be precipitated by infection, including CMV and EBV. Lyme is a more rare cause of GBS. CMV and EBV in an immunocompetent individual does not typically require treatment beyond supportive care Note LFT abnormalities can be seen if there is active CMV infection. For Lyme, neurological manifestations may include meningitis, radiculoneuritis, facial nerve palsy, encephalomyelitis, and/or peripheral neuropathy. His clinically presentation is not suggestive of Lyme encephalitis or meningitis. Pts CSF only has 3 WBCs, reassuring against meningoencephalitis. Pt CSF studies for Lyme disease would typically show pleocytosis with primarily lymphocytes or monocytes. initially with left sided facial weakness that has resolved; this may be due to viral infection and/or Lyme. Since CSF WBC is negative, along with negative HSV on ME panel, have stopped vancomycin and acyclovir. He had previously had equivocal results for Babesia. Repeat testing here is in process, smear negative. Will f/u results, though his clinical presentation doesnt seem consistent with Babesia (also note doxycycline does not cover Babesia). Can transition from ceftriaxone to doxycycline for possible Lyme; would be reasonable to treat with a slightly longer 14-day course as discussed by neurology. Appreciate neurology involvement for GBS. Patient is receiving a 5- day course of IVIG. ID Problem List: 1. 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 LE weakness, paresthesias, myalgias 3. CMV and EBV infection 4. Possible Lyme infection: Lyme IgM positive, Lyme IgG negative, equivocal Lyme disease screen Recommendations: - Can change from ceftriaxone to doxycycline 100 mg PO BID to complete a 14-day total course for Lyme disease (06/1106/25/23) - Appreciate neurology involvement for management of GBS, pt to complete a 5-day course of IVIG (last dose planned for 06/22) - F/u all pending studies including: Lyme reflex WB, HIV, CSF studies, and tickborne studies ID will continue to follow. Lorraine Maynard MD, [facility] Infectious Diseases [facility] Connect direct line: [phone] Admission and Anticipated Discharge Date Admission Date: June 18, 2023 Subjective Subsequent visit was provided via telemedicine using two-way real-time interactive telecommunication between the patient and the telemedicine provider. For the duration of the visit, the provider was performing the assessment from a different facility than the patient. This includesuse of bluetooth stethoscope forauscultationperformed by the telepresenter that the telemedicine provider can hear if described in the physical exam. Job Tracer contact information: Please call [facility] Call Center . (Phone Number For Physician Use Only) After establishing a telemedicine visit, patient was: Patient was verified with two unique identifiers, Patient/authorized rep acknowledged consent and understanding and Gave permission to continue telehealth session Time Spent with Patient: Subsequent => 55 min - Afebrile - Feels well. Reports significant improvement. Still shaky but able to walk, weakness improving significantly - Denies any new symptoms. No pain, no rashes, no new symptoms. Physical Exam Physical Exam: Exam obtained with aid of in-person telepresenter. General: Well-appearing, no acute distress HEENT: Conjunctivae non-injected, sclerae anicteric, MMM, OP clear.. Resp: Respirations nonlabored. Abd: Soft, nontender, nondistended. Ext: No joint warmth or effusions noted. Skin: No rashes or lesions. Neuro: Alert & interactive. No facial droop or asymmetry, tongue midline. Slight symmetrical weakness in BLE. Psych: Pleasant, appropriate. Results & Data Vital Signs (Past 12 Hours) Vital Signs Temp Pulse Pulse Resp BP BP Pulse Ox 06/22/23 11:12 36.5 C 64 19 145/82 H 99 06/22/23 07:40 06/22/23 07:24 36.4 C L 73 19 126/74 99 06/22/23 02:52 36.5 C 76 16 131/80 99 06/21/23 23:56 75 O2 Del Method 06/22/23 11:12 Room Air 06/22/23 07:40 Room Air 06/22/23 07:24 Room Air 06/22/23 02:52 Room Air 06/21/23 23:56 Diagnostic Findings Diagnostics: 06/18 MRI L-spine 1. There is mild abnormal postcontrast enhancement of the nerve roots of the cauda equina. The appearance suggests Guillain-Verdugo? syndrome. Correlate with clinical findings and lumbar puncture results. 2. There is no evidence of epidural fluid collection. 3. There is no disc herniation, central canal stenosis, or neural foraminal narrowing seen throughout the lumbar spine. 4. No destructive bony process is seen. 06/18 MRI C-Spine Negative MRI of the cervical spine. 06/18 MRI Brain Negative MRI of the brain. Micro Summary: 06/18 CSF studies: --3 WBCs, 0 RBCs, total protein 144.6, glucose 88. LDH pending, lactate pending. --Lyme pending --Cryptococcus PCR neg --CMV PCR neg --EBV pending --ME panel negative (including CMV, enterovirus, HSV, HH6, VZV) --cx: NG, gram stain neg 06/17 BCx: NGTD 06/17 Tick borne: --Babesia PCR pending --Babesia smear neg --Anaplasma PCR pending --Anaplasma smear pending --Ehrlichia PCR: pending --Lyme equivocal, positive IgM, negative IgG 06/17 Monoscreen + 06/17 RPP negative Antibiotic Summary: Doxy 06/17, 06/21 - present prior CTX (06/18- 06/21) ACV 06/17 06/18 Vanc 06/17 Azithromycin 06/17
--- NOTE | 2023-06-22 13:25 | Hospitalist Progress Note ---
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 At presentation, differentials included GBS, Lyme disease, and myasthenia gravis. Due to clinical presentation and LP, GBS diagnosis was made. - Patient presented with myalgias, weakness. Patient had diminished deep tendon reflexes throughout that were absent at the Achilles tendon. - + CMV IgM and IgG, + EBV VCA IgM/IgG, and + EBNA IgG. 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 - Plan is continue IVIG. Today is Day 4 of 5. Patient has noted improvement. Patient will continue to Day 5 on 06/12. - As neurology recommended this morning, continue ceftriaxone pending Lyme western blot. Neuro recommended converting to PO doxycycline for 2-3 weeks after discharge. - Also continue with PT/OT for strengthening and gait improvement. Patient has improved and has been able to walk up and down hallway/to bathroom. - Referral to [facility] for outpatient. - As recommended by Neuro, referral to neurology for EMG/nerve conduction studies of both legs and 1 arm the week or two after discharge. - Patient will also be set up with [facility] for follow-up. (2) Transaminitis: Plan: - Patient has had mildly elevated AST and ALT since initial presentation to ED on 06/10. - As reported by ID, LFT abnormalities can be seen in cases of an active CMV infection. - AST and ALT have been trending down. AST 54 and ALT of 133 on 06/18. Previously AST 81 and ALT of 167 on 06/10. - Patient will also be set up with [facility] for follow-up. LFTs will be monitored at follow-up visits. (3) TMJ (temporomandibular joint syndrome): Plan: - Chronic, continue to regularly monitor with family medicine provider. - Self-monitoring for changes in pain or jaw mobility. - F/u with PCP if anything changes. Plan Dispo: PCU/tele VTE ppx: low-risk, deferred FEN/GI: regular diet Full Code Admission and Anticipated Discharge Date Admission Date: June 18, 2023 Supervising Physician Co-Signing Physician Notes I personally examined the patient and verified all renee points of history and exam, discussed case, and agree with decision making with Dl PEREIRA and Dr Peters feeling better just has a headache. Vitals noted, in general he is awake and alert pleasant no distress. HEENT normocephalic atraumatic mucous membranes moist. Musculoskeletal/osteopathic shows right-sided greater than left suboccipitals to be high tone, tender, decreased range of motioninhibitory pressureimproved some, taught father how to perform this as well. Guillian Barrelast day of IVIG tomorrow. Improving nicely. Probably postviral. Given how endemic Lyme is in the areahard to rule that out either as a immunologic factor or even as PORTABLE POWER TOOL REPAIRER Lymeagree with neurology and infectious disease that it is more prudent to treat empiricallybut certainly can finish antibiotics with Doxy. Gentle OMT done for suboccipital tension headache. Otherwise as above. Hopefully home tomorrow. Subjective 22 YO M with a PMH of TMJ who presented to the ER on 06/18/23 as a referral from [facility] with a chief concern of progressive myalgias and lower extremity weakness. The patient had previously presented to the [facility] ED on 06/10 after evaluation by [facility] for evaluation of body aches, joint pains, and numb hands/feet following a migraine headache. At that time, he reported that he woke up that day with pain in all his muscle groups but no weakness or numbness. Patient denied any recent vaccinations or URI symptoms and was unsure of any known tick bites. CT was done that showed no acute intracranial abnormality. CBC and CK levels were unremarkable, but BMP showed a mild transaminitis of AST (81) and ALT (167). He was discharged that day and told to follow-up with [facility]. On 06/11, he followed up with [facility]. The muscle soreness was persistent, but the headache had not returned. He had a positive CMV IgM and IgG, positive EBV VCA IgM/IgG, and positive EBNA IgG. HIV, HBV, HCV, RPR, LEIGHANN, and ESR were negative. He was started on doxycycline 100 mg twice daily pending results for Lyme and other tik-borne illnesses; Lyme, ehrlichiosis, and anaplasmosis were ultimately negative and babesiosis was equivocal. On 06/17, he returned to [facility] due to difficulty getting out of bed, standing up, and walking, weakness in all four extremities, paresthesias in the arms and legs, myalgias of the bilateral upper arms and upper legs. After ER referral, he was found to have mild elevation in WBC count and CK with persistent mild transaminitis. BioFire was negative except for positive Monospot. IV doxycycline was given for Lyme coverage due to a now positive Lyme IgM (IgG negative). IV ceftriaxone 2g Q12H was started, along with IV vancomycin 1250 mg IV Q8H and acyclovir 850 mg Q8H for possible PORTABLE POWER TOOL REPAIRER infection. Dexamethasone 10 mg Q6H and IVIG daily for 5 days were also ordered. MRI of brain and cervical spine with and without contrast were negative. He was admitted to the inpatient service with a plan to perform a LP in the morning. On 06/18, patient was evaluated by neurology and diagnosed clinically with Guillain-Verdugo syndrome. CSF was subsequently clear/colorless and revealed elevated protein of 144.6, 3 WBCs, 0 RBCs, and glucose mildly elevated at 88. This was consistent with GBS. No growth. Following ID consult, dexamethasone, doxycycline, vancomycin, and acyclovir were discontinued. Ceftriaxone and IVIG 0.4 g/kg/day continued. He has been responding well to IVIG and is now on day 4. Today, patient was spoken to at bedside alongside father. Patient reported improvements in overall strength since admission; reported being 50% stronger. He does have persistent numbness in hands/feet. He has been working with physical therapy and was able to walk up and down [place]. He continues to report weakness in his proximal muscle groups of upper and lower extremities, but today, he has been able to walk back and forth to bathroom. He reported that it was like learning to walk again and that his brain does not connect with his hips. He does report a headache at the back of his head. He or his father do not have any concerns currently. Review of Systems Review of Systems: Constitutional Negative for fever, chills, sweats, dizziness, sleep disturbances; positive for general weakness HEENT Negative sore throat, decreased hearing, visual problems, blurring, double vision, or dry eyes; positive for headache at back of head. Respiratory Negative for SOB and coughing. CV Negative for chest pain, palpitations, and edema. GI Negative for nausea, vomiting, diarrhea, constipation, abdominal pain, and changes in bowel habits. Negative for dysuria, hematuria, increased frequency/urgency, and incontinence. MSK Positive for decreased range of motion, positive for muscle weakness and soreness worse with exertion. Negative for back/neck pain, and joint pain. Integumentary Negative for rash, dryness, or skin lesions. Neurologic Negative for altered mental status; positive for numbness and tingling predominantly in lower extremities, unsteadiness, gait abnormality, and localized weakness. Psychiatric Negative for significant changes in mood. Physical Exam Physical Exam: Constitutional: alert and oriented *3, in no acute distress CV: RRR, no murmurs/rubs/gallops, extremities well-perfused, no edema Resp: CTAB, no wheezes/rales/rhonchi appreciated, no increased work of breathing GI: soft, nondistended, nontender MSK: no gross deformities appreciated, +2 distal pulses in all extremities. Reduced range of motion and 4/5 strength bilaterally. Light touch intact. Negative heel-bledsoe. Skin: warm, dry, no rash appreciated Neuro: Cranial nerves 2-11 intact; abnormal 12th cranial nerve with left facial weakness; weakness in motor strength or proximal upper and lower extremities; normal muscle tone and no muscle atrophy; no involuntary movements. Patient had diminished deep tendon reflexes in triceps, biceps, brachioradialis, patellar (+1); unable to elicit ankle reflexes (0) Results & Data Results & Data Vital Signs (Past 12 Hours) Vital Signs Temp Pulse Resp BP BP Pulse Ox O2 Del Method 06/22/23 11:12 36.5 C 64 19 145/82 H 99 Room Air 06/22/23 07:40 Room Air 06/22/23 07:24 36.4 C L 73 19 126/74 99 Room Air 06/22/23 02:52 36.5 C 76 16 131/80 99 Room Air
--- NOTE | 2023-06-22 18:49 | Billing Data ---
Date of Service June 22, 2023 Coding Level of Care Code 29923 SUB INP/OBS CARE MIN
[2023-06-22] MEDS: DOXYCYCLINE HYCLATE 100 MG CAP PO SCH (21:10)
--- NOTE | 2023-06-23 07:42 | Hospitalist Progress Note ---
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 At presentation, differentials included GBS, Lyme disease, and myasthenia gravis. Due to clinical presentation and LP, GBS diagnosis was made. 1) GBS (Guillain E[place] syndrome) - Patient presented with myalgias, weakness. Patient had diminished deep tendon reflexes throughout that were absent at the Achilles tendon. - + CMV IgM and IgG, + EBV VCA IgM/IgG, and + EBNA IgG. 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 - Plan is continue IVIG. Today is Day 5 of 5. Patient has noted improvement. Patient will continue to Day 5 on 06/22. - As neurology recommended this morning, continue ceftriaxone pending Lyme western blot. Neuro recommended converting to PO doxycycline for 2-3 weeks after discharge. - Pt still not exhibiting any bulbar or respiratory symptoms - Also continue with PT/OT for strengthening and gait improvement. Patient has improved and has been able to walk up and down hallway/to bathroom. - Referral to [facility] as outpatient for: EMG/nerve conduction studies of both legs and 1 arm the week or two after discharge. - Patient will also be set up with [facility] for follow-up. 2) Transaminitis - Patient has had mildly elevated AST and ALT since initial presentation to ED on 06/10. - LFT abnormalities can be seen in cases of an active CMV infection. - AST and ALT have been trending down. AST 54 <-- 81; ALT, 133 <-- 167 - Patient will also be set up with [facility] for follow-up. LFTs will be monitored at follow-up visits. 3) TMJ (Temporomandibular joint syndrome) - Chronic, continue to regularly monitor with family medicine provider. - Self-monitoring for changes in pain or jaw mobility. - F/u with PCP if anything changes. Dispo: PCU/tele VTE ppx: low-risk, deferred FEN/GI: regular diet Code status: Full Code Admission and Anticipated Discharge Date Admission Date: June 18, 2023 Subjective I saw the patient this morning and he continues to improve. Still AAO x 3, without signs of confusion or any meningeal signs. Able to stand, ambulate slowly. Results & Data Results & Data Vital Signs (Past 12 Hours) Vital Signs Temp Pulse Pulse Resp BP BP Pulse Ox 06/23/23 02:46 36.5 C 65 17 136/79 98 06/23/23 02:25 69 06/22/23 23:27 36.5 C 81 18 140/82 99 O2 Del Method 06/23/23 02:46 Room Air 06/23/23 02:25 06/22/23 23:27 Room Air
[2023-06-23] MEDS ORDERED: KETOROLAC TROMETHAMINE 15 MG/ML VIAL IV PRN (07:51)
--- NOTE | 2023-06-23 08:55 | Neurology Progress Note ---
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 The etiology is not obvious but he has a possible EBV origin or even Lyme disease. The abnormal MRI of the lumbar spine with thickened nerve roots taking up contrast is consistent with either Guillain-Verdugo syndrome or an acute Lyme reaction. On examination he has mild to moderate weakness more proximal than distal without obvious ataxia. He has absent reflexes except for the triceps which are present but diminished. There is no objective sensory loss. He has no cranial nerve issues currently. There are no meningeal signs or encephalopathy. He has a mild headache responsive to Tylenol, which is likely secondary to IVIG. Overall, his prognosis is quite good and I suspect he will recover completely. This will depend on how much axonopathy he has with this condition, compared to demyelination. An EMG will sort this out. Recommendations: 1. Finish IVIG this morning. Consider discontinuing IV and IV fluids after this. 2. Continue with physical therapy for strengthening and gait improvement. 3. Awaiting Lyme Western blot and EBV final titers. 4. Agree with doxycycline 150 mg twice daily for a total of 3 weeks. 5. Recommend EMG and nerve conduction studies of both legs and 1 arm in 2 to 3 weeks. 6. Follow-up with Dr. Telles in clinic. Overall, I spent a total of 60 minutes with this case including review of records, direct evaluation of the patient at bedside, report generation, and discussion of the case with the patient, father, and RN at bedside as well as Dr. House, including differential diagnosis and treatment options. Admission and Anticipated Discharge Date Admission Date: June 18, 2023 Subjective Patient has no complaint of pain. He does have a mild generalized headache that can respond to Tylenol. This has been on and off since starting IVIG. The headache is still present when he lays flat and is the same when he sits up. He still has numbness and tingling in his hands and feet and still feels weak, but he feels stronger today than he did even yesterday. He is walking a little better. Blood pressure is 141/70 and he is afebrile. Today he is on his fifth 5 days of treatment of IVIG. He has been converted from ceftriaxone to doxycycline p.o. Results & Data Vital Signs (Past 12 Hours) Vital Signs Temp Pulse Pulse Resp BP BP Pulse Ox 06/23/23 07:47 36.7 C 72 18 141/70 H 100 06/23/23 02:46 36.5 C 65 17 136/79 98 06/23/23 02:25 69 06/22/23 23:27 36.5 C 81 18 140/82 99 O2 Del Method 06/23/23 07:47 Room Air 06/23/23 02:46 Room Air 06/23/23 02:25 06/22/23 23:27 Room Air Exam (Neuro) Physical Exam: He is awake and alert. Speech is without aphasia or dysarthria. Mood and affect seem normal and appropriate. Thought processes are intact and he is pleasant and cooperative Extraocular eye muscles were intact without nystagmus. Pupils were 4 mm bilaterally reactive to light. There is no facial droop and tongue is midline. Sternocleidomastoid and trapezius strength was 5/5 bilaterally. Coordination was normal in the arms without tremor or ataxia. Gait was slightly wide-based and tentative. It was a little difficult for him to go from sitting to standing because of proximal leg weakness but he did do it on his own. Motor strength was 4/5 proximally in the arms and legs much like yesterday with 4+/5 distally in the arms bilaterally. Tibialis anterior was 4/5 right greater than left side gastrocnemius muscles were 4+/5 Reflexes were 1/4 in the triceps tendons bilaterally. I believe that the reflexes were 0/4 in the biceps, brachioradialis, quadriceps, and Achilles tendons bilaterally. Although the patient feels numbness and tingling in his hands and feet, he has no objective sensory loss to testing. 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
--- NOTE | 2023-06-23 09:18 | Infectious Disease Progress Nt ---
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 Symptoms initially started in late April 2023 with headache and paresthesias of hands and feet. Then he began having myalgias in all four extremities. He was seen in the ED on 06/10 at which time he had a negative CT head with mild transaminitis. He had outpatient follow up through [facility] where he had ongoing mild transaminitis, +CMV IgM and IgG, +EBV VCA IgM/IgG and EBNA IgG (suggestive of recent infection). Lyme, Ehrlichiosis, anaplasmosis testing negative, babesiosis testing equivocal. LEIGHANN, ESR negative, CRP slightly elevated. He was started on doxycycline on 06/11 which he has continued taking. He subsequently presented to [facility] ED on 06/17 when he had sudden worsening of LE weakness where he could not walk. He has not had any fevers, no recent vaccinations, no tick bites or rashes. He went on a fishing trip in mid-April. No neck pain, bowel /bladder incontinence. Here he has been afebrile, vss. WBC 10.9>8.5. Cr wnl. AST 69, ALT 167, Alk phos and bili wnl. CK 225. S/p LP 06/18 with 3 WBC, elevated protein to 144.6, glucose elevated to 88. MRI brain negative, MRI C-spine negative, MRI L-spine with mild enhancement of cauda equina c/f GBS. He was seen by neurology with c/f GBS and has been receiving IVIG with significant improvement in weakness. ID consulted on 06/18 for possible Guillain-Casselton and concern for CMV, EBV, and/or Lyme infections as potential precipitant(s) of GBS. Patient found to have evidence of potentially recent EBV and CMV infection; recent [facility] testing with +CMV IgM and IgG, +EBV VCA IgM/IgG and EBNA IgG (suggestive of recent infection). He previously had negative Lyme testing recently which is now equivocal (+IgM but neg IgG)consider whether this represents a true new Lyme infection given possible exposure during his fishing trip. IgM may sometimes be false positive; WB is pending. 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 GBS can be precipitated by infection, including CMV and EBV. Lyme is a more rare cause of GBS. CMV and EBV in an immunocompetent individual does not typically require treatment beyond supportive care Note LFT abnormalities can be seen if there is active CMV infection. For Lyme, neurological manifestations may include meningitis, radiculoneuritis, facial nerve palsy, encephalomyelitis, and/or peripheral neuropathy. His clinically presentation is not suggestive of Lyme encephalitis or meningitis. Pts CSF only has 3 WBCs, reassuring against mening oencephalitis. Pt CSF studies for Lyme disease would typically show pleocytosis with primarily lymphocytes or monocytes. initially with left sided facial weakness that has resolved; this may be due to viral infection and/or Lyme. Since CSF WBC is negative, along with negative HSV on ME panel, have stopped vancomycin and acyclovir. He had previously had equivocal results for Babesia. Repeat testing here is in process, smear negative. Will f/u results, though his clinical presentation doesnt seem consistent with Babesia (also note doxycycline does not cover Babesia). Can continue doxycycline for possible Lyme; patient would complete a 14 day course on 06/24 though per neurology would prefer an even longer course out of caution. Appreciate neurology involvement for GBS. Patient is receiving a 5-day course of IVIG for GBS. ID Problem List: 1. 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 LE weakness, paresthesias, myalgias 3. CMV and EBV infection 4. Possible Lyme infection: Lyme IgM positive, Lyme IgG negative, equivocal Lyme disease screen Recommendations: - Continue doxycycline 100 mg PO BID to complete a 14-day total course for Lyme disease (06/1106/25/23) per neuro, favoring longer course which is reasonable - Appreciate neurology involvement for management of GBS, pt to complete a 5-day course of IVIG (last dose 06/22) - F/u all pending studies including: Lyme reflex WB, HIV, CSF studies, and tickborne studies - Ensure close follow-up with neuro and PCP - Please reengage ID if additional infectious diseases testing returns positive Plan discussed with hospitalist. Patient to discharge today. Thank you for letting ID participate in the care of this patient. ID will sign off at this time. If questions, please contact the [facility] call center at [phone]. Lorraine Maynard MD, [facility] Infectious Diseases [facility] ID Connect direct line: [phone] Admission and Anticipated Discharge Date Admission Date: June 18, 2023 Subjective This patient recommendation is based on a telemedicine consult request which was completed asynchronously through chart review and information provided by the primary physician. The patient was not seen or examined today. The evaluation is consultative in nature and all patient care and treatment decisions can either be accepted or rejected by the patient's primary hospital-based treating physician using their own independent medical judgment for their patient. Time Spent Reviewing Chart: 21 - 30 minutes PLEASE NOTE: E-consult was performed for this visit given that no telepresenter was available at the time and patient likely to discharge soon. - Afebrile - Continuing to improve, strength is improving, no new symptoms reported - Per hospitalist, planning for d/c today Results & Data Vital Signs (Past 12 Hours) Vital Signs Temp Pulse Pulse Resp BP BP Pulse Ox 06/23/23 07:47 36.7 C 72 18 141/70 H 100 06/23/23 02:46 36.5 C 65 17 136/79 98 06/23/23 02:25 69 06/22/23 23:27 36.5 C 81 18 140/82 99 O2 Del Method 06/23/23 07:47 Room Air 06/23/23 02:46 Room Air 06/23/23 02:25 06/22/23 23:27 Room Air Diagnostic Findings Diagnostics: 06/18 MRI L-spine 1. There is mild abnormal postcontrast enhancement of the nerve roots of the cauda equina. The appearance suggests Guillain-Verdugo? syndrome. Correlate with clinical findings and lumbar puncture results. 2. There is no evidence of epidural fluid collection. 3. There is no disc herniation, central canal stenosis, or neural foraminal narrowing seen throughout the lumbar spine. 4. No destructive bony process is seen. 06/18 MRI C-Spine Negative MRI of the cervical spine. 06/18 MRI Brain Negative MRI of the brain. Micro Summary: 06/18 CSF studies: --3 WBCs, 0 RBCs, total protein 144.6, glucose 88. LDH pending, lactate pending. --Lyme pending --Cryptococcus PCR neg --CMV PCR neg --EBV pending --ME panel negative (including CMV, enterovirus, HSV, HH6, VZV) --cx: NG, gram stain neg 06/17 BCx: NGTD 06/17 Tick borne: --Babesia PCR pending --Babesia smear neg --Anaplasma PCR pending --Anaplasma smear pending --Ehrlichia PCR: pending --Lyme equivocal, positive IgM, negative IgG 06/17 Monoscreen + 06/17 RPP negative Antibiotic Summary: Doxy 06/11 06/17, 06/21 - present prior CTX (06/18- 06/21) ACV 06/17 06/18 Vanc 06/17 Azithromycin 06/17
[2023-06-23 10:40] LABS: Albumin Globulin Ratio 0.7 (0.9-2); Albumin Level 3.7 gm/dl (3.4-5.0); BUN Creatinine Ratio 17.5 (10-20); Bilirubin,Total 0.3 mg/dl (0.2-1.0); Calcium 9.1 mg/dl (8.6-10.3); Est GFR (Non-African American) 126.8 ml/min; Globulin 5.2 gm/dl (2.5-4.0); Potassium 3.8 mmol/L (3.5-5.1); Total Protein 8.9 gm/dl (6.0-8.3)
--- NOTE | 2023-06-23 11:06 | Hospitalist Progress Note ---
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 Etiology is not obvious but possibly EBV in origin. Still waiting on Lyme Western Blot but this is less likely. On examination, mild to moderate weakness in extremities and diminished reflexes but no objective sensory loss. Main concern is headache responsive to Tylenol. - IVIG was finished this morning; day 08/01. Patient has noted improvement. - I spoke with neurology this morning and they made several recommendations: a) Discontinue IV and IV fluids after IVIG is finished b) Continue with PT for strengthening and gait improvement c) Continue doxycycline 100 mg twice daily for 3 weeks. Still awaiting Lyme Western blot. d) Recommended EMG and nerve conduction studies of both legs and 1 arm in 2-3 weeks. E) Recommended follow-up with Dr. Telles in clinic f) Lastly, suggested walking sticks to help with any walking instability - Last recommendation is to follow up with [facility] - These recommendations were all discussed with patient and father. They agree with all and will picker feeder walking sticks on drive home if discharged. - Also discussed possibility of discharge. Patient and father are both happy with this. We discussed where patient would go. They said they will go to patients apartment and assess. He has a roommate who works from home and can help him if needed. Also, patients dad works in [place] and will take him home or help if needed. (2) Transaminitis: Plan: - As reported by ID, LFT abnormalities can be seen in cases of an active CMV inf ection. - AST and ALT have been trending down. AST 54 and ALT of 133 on 06/18. Previously AST 81 and ALT of 167 on 06/10. - Plan for [facility] to monitor LFTs 2 weeks after discharge. (3) TMJ (temporomandibular joint syndrome): Plan: - Chronic, continue to regularly monitor with family medicine provider. - Self-monitoring for changes in pain or jaw mobility. - F/u with PCP if anything changes. Plan Dispo: Discharge 06/22 VTE ppx: low-risk, deferred FEN/GI: regular diet Full Code Admission and Anticipated Discharge Date Admission Date: June 18, 2023 Subjective 22 YO male with a PMH of TMJ presented to the ER on 06/18/23 as a referral from [facility] with a chief concern of progressive myalgias and lower extremity weakness. 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 Patient was put on ceftriaxone and IVIG 0.4 g/kg/day. He has been responding well to IVIG and is now on day 5. Today, patient was spoken to at bedside alongside father. Patient reported large improvements in overall strength since admission. He does have persistent tingling in his hands/feet. He has been working with physical therapy and was able to do a loop around the floor and walk up and down stairs yesterday. His father and him described his walking as tenuous. He continues to report weakness in his proximal muscle groups of upper and lower extremities, but says his walking is much better. He just gets very tired mentally and physically after walking. He said his main concern is his current headaches. I asked if these headaches mirrored the ones he was having before the weakness, tingling, etc started. He said they were not similar and were primarily in the back of his head. He said the ice and towel minimally helped yesterday. He said Tylenol does help a good amount. They do not have any other concerns currently. He is really excited about the possibility of going home and is very motivated to get better. He said I know it will be hard but I will get back to normal. Review of Systems Review of Systems: Constitutional: Positive for general weakness and headaches. MSK: Positive for decreased ROM, muscle weakness, and soreness worse with exertion. Neuro: Positive for numbness and tingling primarily in lower extremities, unsteadiness, gait abnormality. Physical Exam Physical Exam: Constitutional: alert and oriented *3, in no acute distress. CV: RRR, no murmurs/rubs/gallops, extremities well-perfused, no edema. Resp: CTAB, no wheezes/rales/rhonchi appreciated, no increased work of breathing. GI: soft, nondistended, nontender. MSK: no gross deformities appreciated, +2 distal pulses in all extremities. 4/5 strength bilaterally. Light touch intact. Positive heel-bledsoe. Skin: warm, dry, no rash appreciated. Neuro: Cranial nerves 2-12 intact. No left facial weakness appreciated. Weakness in motor strength. Normal muscle tone and no muscle atrophy. Results & Data Results & Data Vital Signs (Past 12 Hours) Vital Signs Temp Pulse Pulse Resp BP BP Pulse Ox 06/23/23 07:47 36.7 C 72 18 141/70 H 100 06/23/23 02:46 36.5 C 65 17 136/79 98 06/23/23 02:25 69 06/22/23 23:27 36.5 C 81 18 140/82 99 O2 Del Method 06/23/23 07:47 Room Air 06/23/23 02:46 Room Air 06/23/23 02:25 06/22/23 23:27 Room Air
[2023-06-23 11:45] LABS: EBV Nuclear Ag Antibody >600.00 U/mL; EBV Virus Capsid Ag IgG Ab >750.00 U/mL
--- NOTE | 2023-06-23 12:22 | Discharge Summary ---
Date of Service June 23, 2023 Admission HPI Per Admitting Provider 22 year old male with h/o TMJ syndrome presenting with progressively worsening myalgias, paresthesias, and LE weakness. Sx initially started in late April with headache and paresthesia in hands and feet - then began having myalgias in all four extremities. Patient presented today as he had sudden worsening in LE weakness, such that he could not walk. Prior to this, patient was seen in ED on 06/10, negative CT head, labs largely unremarkable apart from mild transaminitis. Since discharge from ED, patient had follow up outpatient studies through [facility], significant for ongoing mild transaminitis, +CMV IgM and IgG, +EBV VCA IgM/IgG and EBNA IgG (suggestive of recent infection). Lyme, ehrlichiosis, anaplasmosis testing negative, babesiosis testing equivocal. LEIGHANN, ESR negative, CRP slightly elevated. Patient was started on Doxycycline on 06/11, still taking. Patient denies any sick symptoms in the recent past, no fevers, also denies recent vaccinations. Patient notes he went fishing one time in mid-April, denies known tick bites, denies subsequent rashes. Denies neck pain, denies bowel/bladder incontinence. Denies family history of neurological conditions. ED Course: WBC 10.9, AST 69, ALT 167, total CK 225, Lyme screen equivocal with positive IgM, +Monoscreen Principal Diagnosis Guillain [place] syndrome Discharge Exam Constitutional WD/WN, vitals as above Eyes EOM intact bilaterally; normal pupil size Respiratory normal respiratory effort, lungs clear to auscultation Cardiovascular RRR, no murmur, no edema Gastrointestinal (Abdomen) normal bowel sounds, soft, nontender, no hepatosplenomegaly Musculoskeletal Extremities: + abnormal strength (strength of 4/5 dorsiflexion, hip flexion, shoulder flexion) Neurologic awake Motor/Sensory: + abnormal movement Cranial Nerves: PERRL, normal accommodation, EOM intact bilaterally, normal facial strength, tongue midline, able to elevate shoulders bilaterally and symmetric palate elevation Gait: + wide-based gait Coordination: normal [id number] test and normal Romberg test Psychiatric A+Ox3, euthymic affect Discharge Data Allergies Allergy/AdvReac Type Severity Reaction Status Date / Time grass pollen Allergy Unknown Unknown Verified 06/19/23 01:08 tree and shrub pollen Allergy Unknown Unknown Verified 06/19/23 01:08 weed pollen Allergy Unknown Unknown Verified 06/19/23 01:08 Consultations 06/18/23 19:18 ED Decision to Admit Stat 06/18/23 21:19 Consult Neurology Stat 06/19/23 15:52 Consult Infectious Diseases Routine Ordered Studies 06/18/23 20:48 MRI Brain [MR brain wo/w con] Stat 06/18/23 21:56 MRI Cervical [MR cervical spine wo/w con] Stat 06/19/23 01:00 MR lumbar spine wo/w con Stat 06/19/23 11:30 IR lumbar puncture diagnostic Routine Hospital Course (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 At presentation, differentials included GBS, Lyme disease, and myasthenia gravis. Due to clinical presentation and LP, GBS diagnosis was made. 1) GBS (Guillain [place] syndrome) - Patient presented with myalgias, weakness. Patient had diminished deep tendon reflexes throughout that were absent at the Achilles tendon. - + CMV IgM and IgG, + EBV VCA IgM/IgG, and + EBNA IgG. 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 - Pt still not exhibiting any bulbar or respiratory symptoms - Completed IVIG today, as was Day 5 of 5. Patient has noted improvement. - As neurology recommended this morning, continue ceftriaxone pending Lyme west roel blot. - Per Neuro recommendation, converted to PO, doxycycline, 100 mg, BID for 3 weeks after discharge. - Also continue with PT/OT for strengthening and gait improvement. Patient ambulating functionally to hallway/bathroom. - Referral to [facility] in Neuro as outpatient for: EMG/nerve conduction studies of both legs and 1 arm the week or two after discharge. - Patient will also be set up with [facility] for follow-up. 2) Transaminitis - AST nml, resolved; ALT improving, resolving - Patient had mildly elevated AST and ALT since initial presentation to ED on 06/10. - LFT abnormalities can be seen in cases of an active CMV infection. - AST and ALT have been trending down. AST 36 <-- 54 <-- 81; ALT, 64 <-- 133 <-- 167 - Patient will also be set up with [facility] for follow-up. LFTs can be monitored at follow-up visits. 3) TMJ (Temporomandibular joint syndrome) - Chronic, continue to regularly monitor with family medicine provider. - Self-monitoring for changes in pain or jaw mobility. - F/u with PCP if anything changes. Dispo: Home, self-care Code status: Full Code Total Time Total Time Spent Total Time Spent (In Minutes): see attending attestation Discharge Plan Discharge Items Patient Disposition: Home - Self-Care Reason For Visit: MYALGIAS, WEAKNESS Discharge Diagnosis: Guillain [place] syndrome Activity: Per Instructions section Non-emergency contact: Primary Care Provider and Neurologist Call non-emergency contact if: your symptoms worsen Follow-up/Referrals: [facility] [Primary Care Provider] - (Please contact [facility] to schedule your follow up appointment.) Diet: Regular Addtl Attending Provider Instructions: You were admitted to the hospital for Guillain-[place] syndrome. You were treated with IVIg, 1 mg/kg/min, daily for 5 days and ceftriaxone, 2g, daily for 5 days. A discharge summary will be sent to your primary care physician to ensure continuity of care. Please bring this discharge summary with you to your next of fice appointment so that your provider can review it at that time. You can eat yogurt as a probiotic to help prevent a C. difficil infection or antibiotic-associated diarrhea. Brands like Activia, [employer]'s store brand, Chobani, and Dannon that include bacterial cultures S. thermophilus, L. bulgaricus, L. acidophilus bifidus, and L. rhamnosus are good for this. Follow-up appointments: We have requested a follow-up appointment with your primary care physician within one week of discharge. You should also have a follow up appointment with your neurologist in 2-3 weeks. Please call their office if you do not hear from them. Keep all your follow-up appointments with Physical Therapy also as already scheduled. If you cannot make an appointment, notify your provider. Medications: Your medication list has been reviewed and reconciled upon discharge to ensure accuracy and continuity of care. An updated list of all your medications is included with your hospital discharge paperwork. Please review this list closely, and make note of any changes. We sent a new medication called doxycycline hyclate to your pharmacy. Take doxycycline hyclate, 100mg, twice a day, for 21 days. Take your medications as instructed; do not skip a dose of your medicines. Make sure all of your doctors know every medicine you are taking (including qeer-trh-tggpglg medicines, vitamins, and supplements). Call your primary care provider before taking any new medicines (including krlu-xwu-axwjqqu medicines, vitamins, and supplements), because some of these may interact with your current medications, or may make your symptoms worse. Tell your primary care provider if you cannot afford your medications. CONTACT YOUR PRIMARY CARE PROVIDER if you experience any of the following: worsening weakness in arms or legs, difficulties breathing, facial weakness any paresthesias or sensations of tinging, burning in your arms, hands, feet, or legs Difficulty following your treatment plan, or difficulty taking medications CALL 911 OR GO TO THE EMERGENCY DEPARTMENT if you experience any of the following: Sudden, severe abdominal pain or nausea/vomiting Severe chest pain, or chest pain that radiates (moves) to your jaw or arm Sudden, severe shortness of breath or difficulty breathing Thank you for allowing us to participate in your care Pending Studies at Discharge: No Stand-Alone Forms: My [facility] [place], Smoking Cessation Medications and DC Order Prescriptions: New doxycycline hyclate 100 mg tablet 100 mg PO BID 21 Days Qty: 42 0RF Continued ascorbic acid (vitamin C) [Vitamin C] 500 mg Tablet 500 mg PO DAILY zinc 50 mg Capsule 50 mg PO DAILY levocetirizine [Xyzal] 5 mg Tablet 5 mg PO DAILY PRN (Reason: allergies) cholecalciferol (vitamin D3) [Vitamin D3] 50 mcg (2,000 unit) Tablet 50 mcg PO DAILY Discontinued doxycycline hyclate 100 mg Tablet 100 mg PO BID Rx Instructions: Start Date 06/13/23 - End Date 06/23/23. Pt has 10 doses left Discharge Orders: Discharge Order (Routine); Ordered 06/23/23 Ordered By: Scott Peters Admission Data Admit Date/Time: 06/18/23 20:48 Attending Provider: Richy House Admit Provider: Kilo Martin Primary Care Provider: [facility] Other Providers: Christiano Glover; Kendell Telles; Sparkle Hicks; Rachel Davenport; Bronwyn Palmer; Francesca Cevallos; Viky Ulloa; Mary Miller; Marguerite Chavira; Lorraine Maynard Other Interventions: Discharge Summary Assessment (RN) Last Done: 06/23/23 13:11 Supervising Physician Co-Signing Physician Notes I personally examined the patient and verified all renee points of history and exam, discussed case, and agree with decision making with Dr Peters Feels up to going home. Extensive discussion on management, plans, follow-up. All questions answered to the best my ability and to his, as well as his family's satisfaction. Vitals noted, in general he is awake and alert pleasant no distress. HEENT normocephalic atraumatic mucous membranes moist. Breathing unlabored no accessory muscle use good effort. Skin shows no rashes no pallor or icterus. Neuro without focal deficits Guillian Barrelast day of IVIG given today. Improving nicely. Probably postviral. Given how endemic Lyme is in the [place]ard to rule that out either as a immunologic factor or even as [facility]YE[facility]ELTER Lymeagree with neurology and infectious disease that it is more prudent to treat empiricallybut certainly can finish antibiotics with Doxy. safe/stable for home. outpt PT, PCP f/u, neuro f/u
--- NOTE | 2023-06-23 19:22 | Billing Data ---
Date of Service June 23, 2023 Coding Level of Care Code 63972 IN/OBS DISCH 30 MIN/LESS
[2023-06-24 13:32] LABS: Babesia microti DNA Not Detected (Not Detected)
[2023-06-25 09:09] LABS: Ehrlichia chaff DNA Bld Negative (Negative)
[2023-06-25 20:28] LABS: Albumin 4.5 g/dL (3.6-5.1); CSF, LDH 12 U/L (<=25); EBV DNA Quant PCR Not Detected copies/mL; EBV DNA Quant Source CSF; IgG CSF 15.8 mg/dL (0.8-7.7); IgG Serum 1770 mg/dL (600-1640); Lyme DNA PCR CSF or Synovial Not Detected (Not Detected); Lyme DNA Source Whole Blood; Lyme IgG Band Pattern CSF DNR; Lyme IgG CSF NO BANDS DETECTED; Lyme IgM Band Pattern CSF DNR; Lyme IgM CSF NO BANDS DETECTED; Myelin Basic Protein <2.0 mcg/L (<=4.0); Oligoclonal Bands IgG, CSF Absent (Absent); Synthesis Rate, IgG CSF -13.9 mg/24 h (-9.9-3.3)
== END 2023-06-23 13:33 | disposition home or self-care (01) | DRG 95 ==
LOC: ED 17:02 → 2S 20:48 → SUATTDRO 20:48 → 2S 21:44
DX: Z79.899 Other long term (current) drug therapy; A69.22 Other neurologic disorders in Lyme disease; R74.01 Elevation of levels of liver transaminase levels; B94.8 Sequelae of other specified infectious and parasitic diseases; M26.629 Arthralgia of temporomandibular joint, unspecified side; Z91.048 Other nonmedicinal substance allergy status; G61.0 Guillain-Barre syndrome